=== PATIENT | female | born 1960 | race Caucasian/White ===

== ENCOUNTER 2016-03-13 16:35 | Emergency (ER) | payer MEDICAID ==
[2016-03-13] MEDS ORDERED: cefTRIAXone 1 GM in SODIUM CHLORIDE 0.9% MINIBAG 100 ML IV STA (18:07)
[2016-03-13] MEDS ORDERED: DEXAMETHASONE 10 MG/ML VIAL IVP STA (18:07)
[2016-03-13] MEDS ORDERED: SODIUM CHLORIDE 0.9% 1,000 ML IV ONE (18:07)
[2016-03-13] MEDS ORDERED: cefTRIAXone 1 GM VIAL ONE (18:26)
[2016-03-13] MEDS ORDERED: DEXAMETHASONE 10 MG/ML VIAL ONE (18:27)
[2016-03-13] MEDS ORDERED: IPRATROPIUM/ALBUTEROL 3 ML NEB INH STA (18:49)
[2016-03-13] MEDS ORDERED: IPRATROPIUM/ALBUTEROL 3 ML NEB INH ONE (19:02)
== END 2016-03-13 20:05 | disposition home or self-care (01) ==
DX: J18.9 Pneumonia, unspecified organism (principal); R09.02 Hypoxemia; E86.0 Dehydration; F17.200 Nicotine dependence, unspecified, uncomplicated
CPT/HCPCS: 36415; 71020; 80053; 83605; 83690; 85025; 87040; 87275; 87276; 94640; 96374; 96375; 99284; J7620

== ENCOUNTER 2016-04-09 21:15 | Inpatient (IN) | payer MEDICAID ==
[2016-04-09] MEDS ORDERED: METOPROLOL 5 MG/5 ML VIAL IVP ONE ×3 (21:48→23:02)
[2016-04-09] MEDS ORDERED: METOPROLOL 5 MG/5 ML VIAL IVP STA ×3 (21:49→22:48)
[2016-04-09] MEDS ORDERED: DIGOXIN 500 MCG/2 ML AMP IVP STA (22:45)
[2016-04-09] MEDS ORDERED: DIGOXIN 500 MCG/2 ML AMP IVP ONE (22:47)
[2016-04-09] MEDS ORDERED: METOPROLOL TARTRATE 50 MG TABLET PO STA (22:48)
[2016-04-09] MEDS ORDERED: METOPROLOL TARTRATE 50 MG TABLET ONE (23:02)
[2016-04-09] MEDS ORDERED: PROCHLORPERAZINE 10 MG/2 ML VIAL IVP PRN (23:42)
[2016-04-09] MEDS ORDERED: ONDANSETRON 4 MG/2 ML VIAL IVP PRN (23:42)
[2016-04-09] MEDS ORDERED: ACETAMINOPHEN 325 MG TABLET PO PRN (23:42)
[2016-04-09] MEDS ORDERED: HYDROcod/ACETAM 5/325 MG TABLET PO PRN (23:42)
[2016-04-09] MEDS ORDERED: ZOLPIDEM 5 MG TABLET PO PRN (23:42)
[2016-04-09] MEDS ORDERED: IOPAMIDOL-300 100 ML VIAL IVP ONE (23:47)
[2016-04-09] MEDS ORDERED: diltiaZEM INJ 5 MG/ML VIAL IVP STA (23:51)
[2016-04-10] MEDS: diltiaZEM 30 MG TABLET PO SCH ×4 (01:15→18:43)
[2016-04-10] MEDS: FUROSEMIDE 40 MG/4 ML VIAL IVP SCH ×3 (01:15→20:50)
[2016-04-10] MEDS: PANTOPRAZOLE 40 MG TABLET PO SCH (06:16)
[2016-04-10] MEDS: SODIUM CHLORIDE FLUSH 0.9% 10 ML SYRINGE IVP SCH ×3 (06:16→20:51)
[2016-04-10] MEDS: POLYETHYLENE GLYCOL 3350 17 GM PACKET PO SCH (08:21)
[2016-04-10] MEDS: ENOXAPARIN 40 MG/0.4 ML SYRINGE SUBQ SCH (08:21)
[2016-04-10] MEDS: HYDROcod/ACETAM 10 MG/325 MG TABLET PO PRN ×3 (08:21→19:50)
[2016-04-10] MEDS: ASPIRIN 325 MG TABLET PO SCH (08:21)
[2016-04-10] MEDS ORDERED: PERFLUTREN LIPID MICROSPHERES 1.65 MG/1.5 ML VIAL IVP ONE (08:25)
[2016-04-10] MEDS: POTASSIUM CHLORIDE 20 MEQ TABLET PO SCH (08:28)
[2016-04-10] MEDS: ALBUTEROL NEB 2.5 MG/3 ML INH PRN ×2 (08:30→20:35)
[2016-04-10] MEDS: diltiaZEM INJ 125 MG in DEXTROSE 5% 100 ML IV ONE ×2 (11:32→20:52)
[2016-04-11] MEDS: diltiaZEM 30 MG TABLET PO SCH ×4 (00:36→18:06)
[2016-04-11] MEDS: HYDROcod/ACETAM 10 MG/325 MG TABLET PO PRN ×4 (01:12→19:57)
[2016-04-11] MEDS: PANTOPRAZOLE 40 MG TABLET PO SCH (06:49)
[2016-04-11] MEDS: SODIUM CHLORIDE FLUSH 0.9% 10 ML SYRINGE IVP SCH ×3 (06:51→20:57)
[2016-04-11] MEDS: ASPIRIN 325 MG TABLET PO SCH (08:25)
[2016-04-11] MEDS: FUROSEMIDE 40 MG/4 ML VIAL IVP SCH ×2 (08:25→20:57)
[2016-04-11] MEDS: POLYETHYLENE GLYCOL 3350 17 GM PACKET PO SCH (08:25)
[2016-04-11] MEDS: POTASSIUM CHLORIDE 20 MEQ TABLET PO SCH (08:25)
[2016-04-11] MEDS: ENOXAPARIN 40 MG/0.4 ML SYRINGE SUBQ SCH (08:25)
[2016-04-11] MEDS: diltiaZEM INJ 125 MG in DEXTROSE 5% 100 ML IV ONE ×2 (09:30→18:01)
[2016-04-11] MEDS: ALBUTEROL NEB 2.5 MG/3 ML INH PRN (09:50)
[2016-04-11] MEDS: diltiaZEM INJ 125 MG in DEXTROSE 5% 100 ML IV SCH (18:03)
[2016-04-12] MEDS: diltiaZEM 30 MG TABLET PO SCH ×2 (00:06→07:04)
[2016-04-12] MEDS: HYDROcod/ACETAM 10 MG/325 MG TABLET PO PRN (00:06)
[2016-04-12] MEDS: diltiaZEM INJ 125 MG in DEXTROSE 5% 100 ML IV SCH ×3 (03:01→20:35)
[2016-04-12] MEDS: PANTOPRAZOLE 40 MG TABLET PO SCH (07:05)
[2016-04-12] MEDS: SODIUM CHLORIDE FLUSH 0.9% 10 ML SYRINGE IVP SCH ×3 (07:05→20:37)
[2016-04-12] MEDS: LORazepam 2 MG/ML SYRINGE IVP PRN ×3 (07:45→21:03)
[2016-04-12] MEDS: METOPROLOL 5 MG/5 ML VIAL IVP SCH ×3 (08:30→18:09)
[2016-04-12] MEDS: ENOXAPARIN 120 MG/0.8 ML SYRINGE SUBQ SCH ×2 (08:44→20:37)
[2016-04-12] MEDS: FUROSEMIDE 40 MG/4 ML VIAL IVP SCH ×2 (08:44→20:37)
[2016-04-12] MEDS: POLYETHYLENE GLYCOL 3350 17 GM PACKET PO SCH (08:45)
[2016-04-12] MEDS: CHLORHEXIDINE GLUCONATE 15 ML UDC PO SCH ×3 (09:15→20:37)
[2016-04-12] MEDS: ASPIRIN 325 MG TABLET PO SCH (09:16)
[2016-04-12] MEDS ORDERED: MIDAZOLAM 2 MG/2 ML VIAL ONE (09:57)
[2016-04-12] MEDS: SUCCINYLCHOLINE 200 MG/10 ML VIAL IVP ONE ×2 (10:00→14:49)
[2016-04-12] MEDS ORDERED: PROPOFOL 1000 MG/100 ML 100 ML IV ONE (10:14)
[2016-04-12] MEDS ORDERED: LIDOCAINE JELLY 2% 5 ML TUBE TOP ONE (11:22)
[2016-04-12] MEDS: PROPOFOL 1000 MG/100 ML 100 ML IV SCH ×4 (12:14→22:34)
[2016-04-12] MEDS: ALBUTEROL NEB 2.5 MG/3 ML INH PRN ×2 (17:07→19:59)
[2016-04-12] MEDS ORDERED: CALCIUM GLUCONATE 1,000 MG in SODIUM CHLORIDE 0.9% 50 ML IV ONE (19:51)
[2016-04-12] MEDS ORDERED: DEXTROSE 50% ABBOJECT 25 GM/50 ML SYRINGE IVP ONE (19:51)
[2016-04-12] MEDS ORDERED: INSULIN REGULAR HUMAN 100 UNIT/1 ML 10 ML MDV IVP ONE (19:51)
[2016-04-12] MEDS ORDERED: CHLORHEXIDINE GLUCONATE 15 ML UDC PO SCH (21:00)
[2016-04-12] MEDS: MORPHINE 2 MG/ML SYRINGE IVP PRN (21:02)
[2016-04-13] MEDS: METOPROLOL 5 MG/5 ML VIAL IVP SCH ×4 (00:50→18:26)
[2016-04-13] MEDS: ALBUTEROL NEB 2.5 MG/3 ML INH PRN ×2 (01:29→07:51)
[2016-04-13] MEDS: PROPOFOL 1000 MG/100 ML 100 ML IV SCH ×8 (02:14→22:20)
[2016-04-13] MEDS: SODIUM CHLORIDE FLUSH 0.9% 10 ML SYRINGE IVP SCH ×3 (06:05→22:09)
[2016-04-13] MEDS: PANTOPRAZOLE 40 MG VIAL IVP SCH (06:05)
[2016-04-13] MEDS ORDERED: PANTOPRAZOLE 40 MG VIAL IVP SCH (07:00)
[2016-04-13] MEDS ORDERED: SODIUM CHLORIDE INHALATION 3 ML NEB ONE (08:01)
[2016-04-13] MEDS: ASPIRIN 325 MG TABLET PO SCH (08:05)
[2016-04-13] MEDS ORDERED: VANCOMYCIN PER PHARMACY 1 GM in SODIUM CHLORIDE 0.9% 250 ML IV SCH (09:00)
[2016-04-13] MEDS: FUROSEMIDE 40 MG/4 ML VIAL IVP SCH ×2 (09:25→20:06)
[2016-04-13] MEDS: POLYETHYLENE GLYCOL 3350 17 GM PACKET PO SCH (09:31)
[2016-04-13] MEDS: CHLORHEXIDINE GLUCONATE 15 ML UDC PO SCH ×2 (09:41→20:06)
[2016-04-13] MEDS: VANCOMYCIN INJ 1 GM, VANCOMYCIN INJ 500 MG in SODIUM CHLORIDE 0.9% 500 ML IV SCH ×2 (10:16→22:09)
[2016-04-13] MEDS: ENOXAPARIN 40 MG/0.4 ML SYRINGE SUBQ SCH (10:46)
[2016-04-13] MEDS: IPRATROPIUM/ALBUTEROL 3 ML NEB INH SCH ×3 (10:56→18:10)
[2016-04-13] MEDS: MORPHINE 2 MG/ML SYRINGE IVP PRN ×2 (11:32→22:46)
[2016-04-13] MEDS: LORazepam 2 MG/ML SYRINGE IVP PRN (13:31)
[2016-04-13] MEDS: methylPREDNISolone SUCCINATE 125 MG/2 ML VIAL IVP SCH ×2 (13:34→22:09)
[2016-04-13] MEDS: SODIUM CHLORIDE FLUSH 0.9% 10 ML SYRINGE IVP PRN (22:46)
[2016-04-14] MEDS: METOPROLOL 5 MG/5 ML VIAL IVP SCH ×4 (00:33→18:00)
[2016-04-14] MEDS: PROPOFOL 1000 MG/100 ML 100 ML IV SCH ×9 (00:57→22:54)
[2016-04-14] MEDS: methylPREDNISolone SUCCINATE 125 MG/2 ML VIAL IVP SCH ×2 (05:58→13:55)
[2016-04-14] MEDS: SODIUM CHLORIDE FLUSH 0.9% 10 ML SYRINGE IVP SCH ×3 (05:58→22:55)
[2016-04-14] MEDS: PANTOPRAZOLE 40 MG VIAL IVP SCH (06:02)
[2016-04-14] MEDS: IPRATROPIUM/ALBUTEROL 3 ML NEB INH SCH (07:45)
[2016-04-14] MEDS ORDERED: IPRATROPIUM/ALBUTEROL 3 ML NEB INH PRN (11:37)
[2016-04-14] MEDS: CHLORHEXIDINE GLUCONATE 15 ML UDC PO SCH ×2 (12:08→21:06)
[2016-04-14] MEDS: FUROSEMIDE 40 MG/4 ML VIAL IVP SCH ×2 (12:08→21:06)
[2016-04-14] MEDS: VANCOMYCIN INJ 1 GM, VANCOMYCIN INJ 500 MG in SODIUM CHLORIDE 0.9% 500 ML IV SCH ×2 (12:09→22:59)
[2016-04-14] MEDS: ENOXAPARIN 40 MG/0.4 ML SYRINGE SUBQ SCH (12:09)
[2016-04-14] MEDS: MORPHINE 2 MG/ML SYRINGE IVP PRN (13:20)
[2016-04-14] MEDS ORDERED: fentaNYL 100 MCG/2 ML VIAL IVP PRN (14:54)
[2016-04-14] MEDS: diltiaZEM INJ 125 MG in DEXTROSE 5% 100 ML IV SCH (16:15)
[2016-04-15] MEDS: METOPROLOL 5 MG/5 ML VIAL IVP SCH ×5 (00:15→23:59)
[2016-04-15] MEDS: diltiaZEM INJ 125 MG in DEXTROSE 5% 100 ML IV SCH (00:31)
[2016-04-15] MEDS: PROPOFOL 1000 MG/100 ML 100 ML IV SCH ×8 (03:21→22:52)
[2016-04-15] MEDS: SODIUM CHLORIDE FLUSH 0.9% 10 ML SYRINGE IVP SCH ×4 (06:07→22:07)
[2016-04-15] MEDS: PANTOPRAZOLE 40 MG VIAL IVP SCH (07:28)
[2016-04-15] MEDS: VANCOMYCIN INJ 1 GM, VANCOMYCIN INJ 500 MG in SODIUM CHLORIDE 0.9% 500 ML IV SCH ×2 (09:51→22:05)
[2016-04-15] MEDS: FUROSEMIDE 40 MG/4 ML VIAL IVP SCH ×2 (10:14→22:04)
[2016-04-15] MEDS: ENOXAPARIN 40 MG/0.4 ML SYRINGE SUBQ SCH (10:14)
[2016-04-15] MEDS: CHLORHEXIDINE GLUCONATE 15 ML UDC PO SCH ×2 (10:14→22:05)
[2016-04-15] MEDS: IPRATROPIUM/ALBUTEROL 3 ML NEB INH SCH (14:34)
[2016-04-16] MEDS: PROPOFOL 1000 MG/100 ML 100 ML IV SCH ×7 (02:01→22:28)
[2016-04-16] MEDS: METOPROLOL 5 MG/5 ML VIAL IVP SCH ×3 (06:17→17:25)
[2016-04-16] MEDS: PANTOPRAZOLE 40 MG VIAL IVP SCH (06:17)
[2016-04-16] MEDS: SODIUM CHLORIDE FLUSH 0.9% 10 ML SYRINGE IVP SCH ×4 (06:20→23:17)
[2016-04-16] MEDS: ENOXAPARIN 40 MG/0.4 ML SYRINGE SUBQ SCH (08:06)
[2016-04-16] MEDS: CHLORHEXIDINE GLUCONATE 15 ML UDC PO SCH ×2 (08:06→21:04)
[2016-04-16] MEDS: FUROSEMIDE 40 MG/4 ML VIAL IVP SCH ×2 (08:06→21:04)
[2016-04-16] MEDS: VANCOMYCIN INJ 1 GM, VANCOMYCIN INJ 500 MG in SODIUM CHLORIDE 0.9% 500 ML IV SCH ×2 (10:56→22:26)
[2016-04-16] MEDS ORDERED: POTASSIUM CHLORIDE 20 MEQ/15 ML UDC PO ONE (12:00)
[2016-04-16] MEDS: SODIUM CHLORIDE FLUSH 0.9% 10 ML SYRINGE IVP PRN (21:04)
[2016-04-16] MEDS: diltiaZEM INJ 125 MG in DEXTROSE 5% 100 ML IV SCH (22:19)
[2016-04-16] MEDS ORDERED: A & D OINTMENT 5 GM PACKET TOP PRN (23:08)
[2016-04-17] MEDS: METOPROLOL 5 MG/5 ML VIAL IVP SCH ×4 (00:04→18:38)
[2016-04-17] MEDS: PROPOFOL 1000 MG/100 ML 100 ML IV SCH ×6 (04:56→22:30)
[2016-04-17] MEDS: SODIUM CHLORIDE FLUSH 0.9% 10 ML SYRINGE IVP SCH ×3 (05:41→21:05)
[2016-04-17] MEDS ORDERED: POTASSIUM CHLORIDE 20 MEQ/15 ML UDC PO SCH (06:22)
[2016-04-17] MEDS: PANTOPRAZOLE 40 MG VIAL IVP SCH (07:05)
[2016-04-17] MEDS: FUROSEMIDE 40 MG/4 ML VIAL IVP SCH ×2 (08:02→21:05)
[2016-04-17] MEDS: ENOXAPARIN 40 MG/0.4 ML SYRINGE SUBQ SCH (08:02)
[2016-04-17] MEDS: CHLORHEXIDINE GLUCONATE 15 ML UDC PO SCH ×2 (08:02→21:04)
[2016-04-17] MEDS: MORPHINE 2 MG/ML SYRINGE IVP PRN (10:23)
[2016-04-17] MEDS: VANCOMYCIN INJ 1 GM, VANCOMYCIN INJ 500 MG in SODIUM CHLORIDE 0.9% 500 ML IV SCH ×2 (10:37→21:05)
[2016-04-17] MEDS: diltiaZEM INJ 125 MG in DEXTROSE 5% 100 ML IV SCH (22:30)
[2016-04-18] MEDS: METOPROLOL 5 MG/5 ML VIAL IVP SCH ×5 (00:27→23:12)
[2016-04-18] MEDS: PROPOFOL 1000 MG/100 ML 100 ML IV SCH ×8 (01:01→21:44)
[2016-04-18] MEDS: MORPHINE 2 MG/ML SYRINGE IVP PRN ×4 (04:54→11:24)
[2016-04-18] MEDS ORDERED: POTASSIUM CHLORIDE 20 MEQ/15 ML UDC PO ONE (05:28)
[2016-04-18] MEDS: SODIUM CHLORIDE FLUSH 0.9% 10 ML SYRINGE IVP SCH ×3 (05:54→21:11)
[2016-04-18] MEDS: PANTOPRAZOLE 40 MG VIAL IVP SCH (06:09)
[2016-04-18] MEDS: CHLORHEXIDINE GLUCONATE 15 ML UDC PO SCH ×2 (08:36→21:11)
[2016-04-18] MEDS: ENOXAPARIN 40 MG/0.4 ML SYRINGE SUBQ SCH (08:43)
[2016-04-18] MEDS: FUROSEMIDE 40 MG/4 ML VIAL IVP SCH ×2 (08:43→21:11)
[2016-04-18] MEDS: LORazepam 2 MG/ML SYRINGE IVP PRN (10:37)
[2016-04-18] MEDS: VANCOMYCIN INJ 1 GM, VANCOMYCIN INJ 500 MG in SODIUM CHLORIDE 0.9% 500 ML IV SCH ×2 (10:47→21:11)
[2016-04-18] MEDS: SODIUM CHLORIDE FLUSH 0.9% 10 ML SYRINGE IVP PRN (15:04)
[2016-04-18] MEDS ORDERED: SODIUM CHLORIDE INHALATION 3 ML NEB ONE (23:07)
[2016-04-19] MEDS: PROPOFOL 1000 MG/100 ML 100 ML IV SCH ×7 (01:06→16:30)
[2016-04-19] MEDS ORDERED: POTASSIUM CHLORIDE 20 MEQ/15 ML UDC PO ONE (05:33)
[2016-04-19] MEDS: PANTOPRAZOLE 40 MG VIAL IVP SCH (06:02)
[2016-04-19] MEDS: SODIUM CHLORIDE FLUSH 0.9% 10 ML SYRINGE IVP SCH (06:02)
[2016-04-19] MEDS: METOPROLOL 5 MG/5 ML VIAL IVP SCH ×2 (06:08→12:41)
[2016-04-19] MEDS: FUROSEMIDE 40 MG/4 ML VIAL IVP SCH (08:35)
[2016-04-19] MEDS: CHLORHEXIDINE GLUCONATE 15 ML UDC PO SCH (08:35)
[2016-04-19] MEDS: ENOXAPARIN 40 MG/0.4 ML SYRINGE SUBQ SCH (08:35)
[2016-04-19] MEDS: VANCOMYCIN INJ 1 GM, VANCOMYCIN INJ 500 MG in SODIUM CHLORIDE 0.9% 500 ML IV SCH (10:17)
[2016-04-19] MEDS: MORPHINE 2 MG/ML SYRINGE IVP PRN (11:21)
[2016-04-19] MEDS ORDERED: SODIUM CHLORIDE INHALATION 3 ML NEB ONE (11:37)
== END 2016-04-19 17:41 | DRG 291 ==
PROC: 5A1955Z Respiratory Ventilation, Greater than 96 Consecutive Hours (ICD-10-PCS; principal; 2016-04-12)
PROC: 0BH17EZ Insertion of Endotracheal Airway into Trachea, Via Natural or Artificial Opening (ICD-10-PCS; 2016-04-12)
DX: I11.0 Hypertensive heart disease with heart failure (principal); J96.01 Acute respiratory failure with hypoxia; J18.9 Pneumonia, unspecified organism; J96.02 Acute respiratory failure with hypercapnia; I48.92 Unspecified atrial flutter; E66.2 Morbid (severe) obesity with alveolar hypoventilation; L03.116 Cellulitis of left lower limb; E87.2 Acidosis; Z68.42 Body mass index [BMI] 45.0-49.9, adult; I48.91 Unspecified atrial fibrillation; E66.01 Morbid (severe) obesity due to excess calories; G47.33 Obstructive sleep apnea (adult) (pediatric); F17.200 Nicotine dependence, unspecified, uncomplicated; E87.5 Hyperkalemia; T17.990A Other foreign object in respiratory tract, part unspecified in causing asphyxiation, initial encounter; Z88.5 Allergy status to narcotic agent; I50.23 Acute on chronic systolic (congestive) heart failure

== ENCOUNTER 2016-05-23 14:34 | Outpatient (CLI) | payer MEDICAID | END 2016-05-23 14:35 | disposition home or self-care (01) | DX: E86.9 Volume depletion, unspecified (principal); I48.1 Persistent atrial fibrillation ==

== ENCOUNTER 2016-08-12 15:25 | Outpatient (CLI) | payer MEDICAID ==
--- NOTE | 2016-08-13 13:56 | XRAY Report ---
TWO VIEW RIGHT SECOND TOE: 08/12/2016 CLINICAL INDICATION: Cellulitis. FINDINGS: AP, lateral, and oblique views of the right 2nd toe demonstrate soft tissue swelling. Ther e is no evidence of fracture. No osteolysis is seen to suggest osteomyelitis. No radiopaque foreign b thalia is seen. IMPRESSION: DISTAL SOFT TISSUE SWELLING, BUT NO EVIDENCE OF OSTEOMYELITIS OR RADIOPAQUE FOREIGN BODY . JOB #: [id number] EXT JOB #:[id number]
== END 2016-08-12 15:26 | disposition home or self-care (01) ==
LOC: DI.S 15:25
PROVIDERS: ATTEND Nurse Practitioner Family
DX: L03.031 Cellulitis of right toe (principal)
CPT/HCPCS: 73660

== ENCOUNTER 2017-10-01 11:42 | Outpatient (CLI) | payer MEDICAID | END 2017-10-01 11:43 | disposition critical access hospital (66) | LOC: EMS 11:42 | PROVIDERS: ATTEND Surgery | DX: R22.41 Localized swelling, mass and lump, right lower limb (principal) | CPT/HCPCS: A0425; A0429; A0999 ==

== ENCOUNTER 2017-10-01 12:11 | Emergency (ER) | payer MEDICAID ==
[2017-10-01] MEDS ORDERED: HYDROcod/ACETAM 5/325 MG TABLET PO STA (12:23)
--- NOTE | 2017-10-01 12:26 | ED Physician Documentation ---
History of Present Illness - Stated complaint Stated Complaint: LUMP ON CALF - Chief complaint Chief Complaint: General - History obtained from History obtained from: Patient, EMS - History of Present Illness Timing: Last night (57-year-old woman with history of morbid obesity and COPD, oxygen dependent at baseline, also atrial fibrillation on Xarelto presents with right leg pain since last night noted a palpable lump in the calf today that she has never had before. No history of DVT or PE. She has been compliant with her Xarelto. No increase in her chronic shortness of breath.) Review of Systems Constitutional: denies: Fever, Chills Cardiac: denies: Chest pain / pressure, Palpitations Respiratory: denies: Dyspnea, Cough GI: denies: Abdominal Pain PD PAST MEDICAL HISTORY - Past Medical History Cardiovascular: None Respiratory: Pneumonia Endocrine/Autoimmune: None GI: None COMMERCIAL FISHER: None : None HEENT: None Psych: Anxiety Musculoskeletal: Osteoarthritis Derm: None - Past Surgical History Past Surgical History: Yes General: Other /COMMERCIAL FISHER: section - Present Medications Home Medications: Ambulatory Orders Medication Instructions Recorded Confirmed Aclidinium [place] [Tudorza 1 puffs INH BID 04/10/16 04/10/16 Pressair] Albuterol Sulfate [Proair Hfa 2 puffs INH Q4H PRN 04/10/16 04/10/16 Inhaler] Ipratropium/Albuterol [Duoneb] 3 ml INH Q4H PRN 04/10/16 04/10/16 Tiotropium [place] [Spiriva 2 puffs INH BID 04/10/16 04/10/16 Respimat] - Allergies Allergies/Adverse Reactions: Allergies Allergy/AdvReac Type Severity Reaction Status Date / Time erythromycin base Allergy Severe Hives Verified 10/01/17 12:23 [Erythromycin Base] codeine [Codeine] Allergy Unknown unknown Verified 10/01/17 12:23 - Social History Does the pt smoke?: Yes Smoking Status: Current every day smoker Does the pt drink ETOH?: No Does the pt have substance abuse?: Yes - Immunizations Immunizations are current?: Yes - POLST Patient has POLST: No PD ED PE NORMAL - Vitals Vital signs reviewed: Yes - General General: Alert and oriented X 3, No acute distress - Extremities Extremities: Other (In the right proximal lateral calf there is a palpable tender lump, a little smaller than a golf ball. There is no tenderness in the popliteal fossa. She has pedal edema but it seems symmetric with good pedal pulses.) - Neuro Neuro: Alert and oriented X 3, Normal speech Results - Vitals Vitals: Vital Signs - 24 hr 10/01/17 12:20 Temperature 36.1 C L Heart Rate 94 Respiratory 16 Rate Blood Pressure 156/68 H O2 Saturation 97 Oxygen O2 Source Nasal cannula - Rads (name of study) RLE DVT sono Radiology: Prelim report reviewed (lump c/w hematoma, no dvt) PD MEDICAL DECISION MAKING - Sepsis Event Vital Signs: Vital Signs - 24 hr 10/01/17 12:20 Temperature 36.1 C L Heart Rate 94 Respiratory 16 Rate Blood Pressure 156/68 H O2 Saturation 97 Oxygen O2 Source Nasal cannula Departure - Departure Disposition: 01 Home, Self Care Clinical Impression: Hematoma of right lower extremity Qualifiers: Encounter type: initial encounter Qualified Code(s): S80.11XA - Contusion of right lower leg, initial encounter Condition: Good Record reviewed to determine appropriate education?: Yes Instructions: ED Hematoma Comments: Your blood pressure was elevated today on check into the emergency department. This does not mean that you have hypertension, it is a common phenomenon to come to the emergency department and have elevated blood pressure. I recommend that you see your primary care physician within the week to have it rechecked when you are feeling better.
--- NOTE | 2017-10-01 14:23 | Ultrasound Report ---
Procedure Date: 10/01/2017 Accession Number: [id number] / [id number] Procedure: US - Duplex Ext Veins Right CPT Code: FULL RESULT: EXAM: Duplex Ext Veins Right DATE: 10/01/2017 1:15 PM CLINICAL HISTORY: painful lump R prox medial calf COMPARISON: None. TECHNIQUE: Real-time sonographic vascular imaging was performed by the senior java programmer analyst through the lower extremities utilizing both color-flow and Doppler spectral analysis. Multiple community engagement representative static images were saved for review. FINDINGS: Right: Common Femoral Vein (CFV): Normal. [Profunda Femoral Vein (PFV): Normal. Superficial Femoral Vein (SFV) Prox: Normal. Superficial Femoral Vein (SFV) Mid: Normal. Superficial Femoral Vein (SFV) Dist: Normal. Popliteal Vein: Normal. Posterior Tibial Veins: Normal. Peroneal Veins: Normal. Note is made of a heterogeneous superficial collection measuring up to 1.4 cm without increased surrounding flow by color Doppler surrounding edema. IMPRESSION: No DVT. Soft tissue hematoma versus indeterminate collection. RADIA
[2017-10-01 14:43] VITALS: BP 162/92
== END 2017-10-01 14:54 | disposition home or self-care (01) ==
LOC: EDUNIT# → ED 12:11
DX: S80.11XA Contusion of right lower leg, initial encounter (principal); R03.0 Elevated blood-pressure reading, without diagnosis of hypertension
CPT/HCPCS: 93971; 99283; A9270

== ENCOUNTER 2018-02-08 12:12 | Outpatient (CLI) | payer MEDICAID ==
[2018-02-08 18:34] LABS: BASOPHILS % (AUTO) 0.2 %; EOSINOPHILS # (AUTO) 0.1 10^3/uL (0.0-0.7); EOSINOPHILS % (AUTO) 0.6 %; HGB - HEMOGLOBIN 12.4 g/dL (12.0-16.0); LYMPHOCYTES # (AUTO) 1.2 10^3/uL (1.5-3.5); LYMPHOCYTES % (AUTO) 13.3 %; MEAN CORPUSCULAR VOLUME 83.9 fL (81.0-99.0); MEAN PLATELET VOLUME 8.2 fL (7.9-10.8); MONOCYTES # (AUTO) 0.6 10^3/uL (0.0-1.0); MONOCYTES % (AUTO) 6.6 %; NEUTROPHILS # (AUTO) 7.4 10^3/uL (1.5-6.6); NEUTROPHILS % (AUTO) 79.3 %; PLT - PLATELET COUNT 391 10^3/uL (130-450); RED BLOOD COUNT 4.77 10^6/uL (4.20-5.40); RED CELL DISTRIBUTION WIDTH 14.9 % (12.0-15.0); WHITE BLOOD COUNT 9.4 x10^3/uL (4.8-10.8)
[2018-02-08 18:52] LABS: ALBUMIN 3.8 g/dL (3.2-5.5); ALBUMIN/GLOBULIN RATIO 1.1 (1.0-2.2); BILIRUBIN,TOTAL 0.5 mg/dL (0.2-1.0); CALCIUM 8.9 mg/dL (8.5-10.3); CREATININE 0.6 mg/dL (0.4-1.0); TOTAL PROTEIN 7.4 g/dL (6.7-8.2)
[2018-02-08 18:55] LABS: HB2 TOTAL 13.2 g/dL; HEMOGLOBIN A1C 0.48 g/dL; HEMOGLOBIN A1C % 5.5 % (4.6-6.2)
== END 2018-02-08 23:59 | disposition home or self-care (01) ==
LOC: LAB.S 12:12
PROVIDERS: ATTEND Nurse Practitioner Family
DX: I10 Essential (primary) hypertension (principal); R73.9 Hyperglycemia, unspecified
CPT/HCPCS: 36415; 80053; 83036; 84443; 85025

== ENCOUNTER 2020-04-16 09:10 | Outpatient (CLI) | payer MEDICARE, MEDICAID | END 2020-04-16 09:11 | disposition critical access hospital (66) | LOC: EMS 09:10 | PROVIDERS: ATTEND Emergency Medicine | DX: R06.02 Shortness of breath (principal) | CPT/HCPCS: A0425; A0429 ==

== ENCOUNTER 2020-04-16 09:41 | Inpatient (IN) | payer MEDICARE, MEDICAID ==
[2020-04-16] MEDS ORDERED: IPRATROPIUM/ALBUTEROL 3 ML NEB INH STA (09:59)
--- NOTE | 2020-04-16 10:10 | ED Physician Documentation ---
History of Present Illness - Stated complaint Stated Complaint: SOA - Chief complaint Chief Complaint: Resp - History obtained from History obtained from: Patient - Additonal information Additional information: 60-year-old woman with past medical history of COPD, A. fib on Eliquis, presents with progressive shortness of breath over the past couple days associated with subjective chills, cough productive of yellow sputum, and nasal congestion. Patient states that she had been feeling under the weather and then woke up this morning acutely short of breath refractory to rescue inhaler treatment therefore she called 911. Patient denies fevers objectively at home. Denies chest pain at present however she does have some chest tightness. Denies worsening leg swelling. Orthopnea at baseline. She does note that she ran out of Symbicort a month ago. 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: None : None HEENT: None Psych: Anxiety Musculoskeletal: Osteoarthritis Derm: None - Past Surgical History Past Surgical History: Yes General: Other /SNACK BAR COOK: section - Present Medications Home Medications: Ambulatory Orders Medication Instructions Recorded Confirmed Ipratropium/Albuterol [Duoneb] 3 ml INH Q4H PRN 04/10/16 04/16/20 Tiotropium [place] [Spiriva 2 puffs INH BID 04/10/16 04/16/20 Respimat] Aspirin [Aspirin EC] 81 mg PO DAILY 04/16/20 04/16/20 Budesonide/Formoterol Fumarate 1 - 2 puffs PO DAILY 04/16/20 04/16/20 [Symbicort 160-4.5 Mcg Inhaler] Furosemide [Lasix] 20 mg PO BID 04/16/20 04/16/20 Metoprolol Tartrate [Lopressor] 75 mg PO BID 04/16/20 04/16/20 Rivaroxaban [Xarelto] 20 mg PO DAILY 04/16/20 04/16/20 Tiotropium [place] [Spiriva] 1 - 2 puffs PO DAILY 04/16/20 04/16/20 - Allergies Allergies/Adverse Reactions: Allergies Allergy/AdvReac Type Severity Reaction Status Date / Time erythromycin base Allergy Severe Hives Verified 04/16/20 09:48 [Erythromycin Base] codeine [Codeine] Allergy Unknown unknown Verified 04/16/20 09:48 - Social History Does the pt smoke?: Yes Smoking Status: Current every day smoker Does the pt drink ETOH?: No Does the pt have substance abuse?: Yes - Immunizations Immunizations are current?: Yes - POLST Patient has POLST: No PD ED PE NORMAL - Vitals Vital signs reviewed: Yes - General General: Alert and oriented X 3, Other (obese appearing) - HEENT HEENT: Atraumatic, PERRL, EOMI, Other (dry mm) - Cardiac Cardiac: Other (tachycardic rate, irregular rhythm) - Respiratory Respiratory: Other (BL diffuse wheezing. dependent crackles. ) - Abdomen Abdomen: Non tender, Non distended - Female Female : Deferred - Rectal Rectal: Deferred - Back Back: No spinal TTP - Derm Derm: Normal color - Extremities Extremities: No deformity, Other (1+ BL pitting edema) - Neuro Neuro: Alert and oriented X 3 - Psych Psych: Normal mood, Normal affect Results - Vitals Vitals: Vital Signs - 24 hr 04/16/20 04/16/20 04/16/20 09:48 09:57 10:16 Temperature 36.7 C 36.7 C Heart Rate 119 H 122 H 116 H Respiratory 19 22 14 Rate Blood Pressure 138/96 H 138/96 H O2 Saturation 100 95 04/16/20 04/16/20 10:34 10:40 Temperature Heart Rate 122 H Respiratory 17 20 Rate Blood Pressure 129/63 O2 Saturation 95 97 Oxygen O2 Source Nasal cannula Oxygen Flow Rate 3 - EKG (time done) 0958 Rate: Rate (enter#) (112) Rhythm: Atrial fibrillation Ischemia: Normal ST segments - Labs Labs: Laboratory Tests 04/16/20 04/16/20 04/16/20 10:14 10:14 10:14 WBC 12.6 H RBC 4.28 Hgb 11.2 L Hct 39.3 MCV 91.8 MCH 26.2 L MCHC 28.5 L RDW 14.4 Plt Count 330 MPV 9.0 Neut # (Auto) 11.3 H Lymph # (Auto) 0.7 L Henry # (Auto) 0.5 Eos # (Auto) 0.0 Baso # (Auto) 0.0 Absolute Nucleated RBC 0.00 Nucleated RBC % 0.0 PT 20.7 H INR 1.9 H APTT 37.4 H VBG pH VBG pCO2 VBG pO2 VBG HCO3 VBG Total CO2 VBG O2 Saturation VBG Base Excess Sodium 141 Potassium 4.4 Chloride 90 L Carbon Dioxide 38 H Anion Gap 13.0 BUN 13 Creatinine 0.6 Estimated GFR (MDRD) 102 Glucose 139 H Calcium 9.1 Total Bilirubin 0.4 AST 14 ALT 15 Alkaline Phosphatase 54 Troponin I High Sens B-Natriuretic Peptide Total Protein 7.2 Albumin 3.5 Globulin 3.7 Albumin/Globulin Ratio 0.9 L Lipase 22 04/16/20 04/16/20 04/16/20 10:14 10:14 10:14 WBC RBC Hgb Hct MCV MCH MCHC RDW Plt Count MPV Neut # (Auto) Lymph # (Auto) Henry # (Auto) Eos # (Auto) Baso # (Auto) Absolute Nucleated RBC Nucleated RBC % PT INR APTT VBG pH 7.325 VBG pCO2 79.2 H VBG pO2 31.8 VBG HCO3 40.4 H VBG Total CO2 42.8 H VBG O2 Saturation 60.3 VBG Base Excess 11.3 H Sodium Potassium Chloride Carbon Dioxide Anion Gap BUN Creatinine Estimated GFR (MDRD) Glucose Calcium Total Bilirubin AST ALT Alkaline Phosphatase Troponin I High Sens 5.2 B-Natriuretic Peptide 123 H Total Protein Albumin Globulin Albumin/Globulin Ratio Lipase PD MEDICAL DECISION MAKING - ED course ED course: 10:30am - sepsis suspected given tachycardia, increased wbc count, CXR with likely pneumonia. 30cc/kg bolus withheld given patient has dependent crackles and BL LE edema. Will treat with gentle ivf resuscitation, antibiotics. patient with improvement in sob s/p neb treatment. repeat lung exam with improvmeent in wheezing. Departure - Departure Disposition: 66 [facility] DC/Xfer Clinical Impression: COPD exacerbation, Pneumonia Condition: Stable
[2020-04-16 10:23] LABS: BASOPHILS % (AUTO) 0.2 %; EOSINOPHILS % (AUTO) 0.2 %; HGB - HEMOGLOBIN 11.2 g/dL (12.0-16.0); LYMPHOCYTES # (AUTO) 0.7 10^3/uL (1.5-3.5); LYMPHOCYTES % (AUTO) 5.8 %; MEAN CORPUSCULAR HEMOGLOBIN 26.2 pg (27.0-31.0); MEAN CORPUSCULAR HGB CONC 28.5 g/dL (32.0-36.0); MEAN CORPUSCULAR VOLUME 91.8 fL (81.0-99.0); MONOCYTES # (AUTO) 0.5 10^3/uL (0.0-1.0); NEUTROPHILS # (AUTO) 11.3 10^3/uL (1.5-6.6); NEUTROPHILS % (AUTO) 89.3 %; PLT - PLATELET COUNT 330 10^3/uL (130-450); RED BLOOD COUNT 4.28 10^6/uL (4.20-5.40); RED CELL DISTRIBUTION WIDTH 14.4 % (12.0-15.0); WHITE BLOOD COUNT 12.6 x10^3/uL (4.8-10.8)
[2020-04-16 10:24] LABS: VBG PCO2 79.2 mmHg (41-51); VBG PH 7.325 (7.31-7.41); VBG PO2 31.8 mmHg (25-47)
[2020-04-16 10:25] LABS: VBG BASE EXCESS 11.3 mmol/L (-2 - +2); VBG TOTAL CO2 42.8 mmol/L (24-29)
[2020-04-16] MEDS ORDERED: levoFLOXacin 750 MG/150 ML 750 MG/150 ML BAG IV STA (10:25)
[2020-04-16 10:27] LABS: INR 1.9 (0.8-1.2); PT - PROTHROMBIN TIME 20.7 secs (9.9-12.6)
--- NOTE | 2020-04-16 10:29 | XRAY Report ---
PROCEDURE: Chest 1 View X-Ray INDICATIONS: Chest Pain TECHNIQUE: One view of the chest was acquired. COMPARISON: 04/19/2016. FINDINGS: Surgical changes and devices: None. Lungs and pleura: No pleural effusions or pneumothorax. Bilateral interstitial prominence. Mild ceph alization of pulmonary vasculature. Mediastinum: Mediastinal contours appear normal. Heart is enlarged Bones and chest wall: No suspicious bony lesions. Overlying soft tissues appear unremarkable. IMPRESSION: 1. Cardiomegaly. 2. Interstitial prominence which could represent edema or atypical pneumonia. Reviewed by: Soumya David MD, PhD on 04/16/2020 10:27 AM [facility] Approved by: Soumya David MD, PhD on 04/16/2020 10:27 AM [facility] Station ID: [id number]
[2020-04-16 10:34] LABS: PARTIAL THROMBOPLASTIN TIME 37.4 secs (24.9-33.3)
[2020-04-16 10:35] LABS: ALBUMIN 3.5 g/dL (3.2-5.5); ALBUMIN/GLOBULIN RATIO 0.9 (1.0-2.2); BILIRUBIN,TOTAL 0.4 mg/dL (0.2-1.0); CALCIUM 9.1 mg/dL (8.5-10.3); CREATININE 0.6 mg/dL (0.4-1.0); TOTAL PROTEIN 7.2 g/dL (6.7-8.2)
[2020-04-16] MEDS ORDERED: LACTATED RINGERS 2,000 ML IV STA (10:42)
[2020-04-16] MEDS ORDERED: methylPREDNISolone SUCCINATE 125 MG/2 ML VIAL IVP STA (10:46)
[2020-04-16] MEDS ORDERED: ACETAMINOPHEN 325 MG TABLET PO PRN (10:50)
--- NOTE | 2020-04-16 10:58 | HISTORY & PHYSICAL EXAMINATION ---
Chief Complaint - Chief Complaint Chief Complaint: dyspnea History of Present Illness - Admitted From Admitted From:: [facility] ED - History Obtained From Records Reviewed: yes History obtained from: patient - History of Present Illness HPI Comment/Other: Patient is a 60-year-old morbidly obese female with medical history significant for atrial fibrillation on anticoagulant, borderline hypertension, CHF, obstructive sleep apnea and obesity hypoventilation syndrome and tobacco abuse who presented to the ED with complaint of dyspnea. She describes that she woke up this morning and the first thing she is did was reached for her inhaler. Last night she felt like she was having a bit of a cold. She denied fever or chills. She has been coughing. The sputum color ranges from clear to yellowish-green. She denied chest pain, abdominal pain, nausea, vomiting, fever or chills. She has a walker to get around at home but mainly glides using the garcia. At rest she is on 3 L of oxygen at home and 5 L with ambulation. In the ED she had a WBC of 12.6. CXR raised concern for atypical pneumonia. As a result she was presented for admission. History - Past Medical History Cardiovascular: reports: None, Congestive heart failure, Hypertension, Atrial fibrillation Respiratory: reports: COPD, Pneumonia, Sleep apnea Endocrine/Autoimmune: reports: Other (Obesity Hypoventillation syndrom) GI: reports: None SAT TUTOR: reports: None : reports: None HEENT: reports: None Psych: reports: Anxiety Musculoskeletal: reports: Osteoarthritis Derm: reports: None MRSA Hx?: No - Past Surgical History General: reports: Other /SAT TUTOR: reports: section - Family & Social History Family History: Mother: Cancer (throat), Diabetes, Type 2, Hypertension, Father: Diabetes, Type 2, Hypertension Living arrangement: At home Social History Notes: She smokes 1 pack a day. She previously smoked 2 to 3 packs a day and had been smoking for 40 years. She denied alcohol or recreational drug use. - POLST Patient has POLST: No POLST Status: Full Code Meds/Allgy - Home Medications Home Medications: Ambulatory Orders Medication Instructions Recorded Confirmed Ipratropium/Albuterol [Duoneb] 3 ml INH Q4H PRN 04/10/16 04/16/20 Tiotropium [place] [Spiriva 2 puffs INH BID 04/10/16 04/16/20 Respimat] Aspirin [Aspirin EC] 81 mg PO DAILY 04/16/20 04/16/20 Budesonide/Formoterol Fumarate 1 - 2 puffs PO DAILY 04/16/20 04/16/20 [Symbicort 160-4.5 Mcg Inhaler] Furosemide [Lasix] 20 mg PO BID 04/16/20 04/16/20 Metoprolol Tartrate [Lopressor] 75 mg PO BID 04/16/20 04/16/20 Rivaroxaban [Xarelto] 20 mg PO DAILY 04/16/20 04/16/20 Tiotropium [place] [Spiriva] 1 - 2 puffs PO DAILY 04/16/20 04/16/20 - Allergies Allergies/Adverse Reactions: Allergies Allergy/AdvReac Type Severity Reaction Status Date / Time erythromycin base Allergy Severe Hives Verified 04/16/20 09:48 [Erythromycin Base] codeine [Codeine] Allergy Unknown unknown Verified 04/16/20 09:48 Review of Systems - Constitutional Constitutional: denies: Fatigue, Fever, Chills - Eyes Eyes: denies: Pain, Irritation - Cardiovascular Cariovascular: reports: Irregular heart rate, Exertional dyspnea. denies: Chest pain, Edema, Lightheadedness, Syncope - Respiratory Respiratory: reports: Cough, Sputum production, Wheezing, SOB at rest, SOB with exertion - Gastrointestinal Gastrointestinal: denies: Abdominal pain, Abdominal distention, Constipation, Diarrhea, Nausea, Vomiting, Coffee grounds emesis, Reflux/heartburn, Bloating, Poor appetite - Genitourinary Genitourinary: denies: Dysuria, Frequency, Urgency, Hematuria, Incontinence, Flank pain - Musculoskeletal Musculoskeletal: reports: Back pain - Integumentary Integumentary: denies: Rash, Pruritis, Lesions - Neurological Neurological: denies: General weakness, Focal weakness, Headache, Dizziness - Psychiatric Psychiatric: denies: Depression, Anxiety - Endocrine Endocrine: denies: Polyuria, Polydypsia - Hematologic/Lymphatic Hematologic/Lymphatic: denies: Anemia, Bruising Prior Level of Functionality: She is independent of activities of daily living Exam - Vital Signs Vital Signs: Vital Signs x48h Temp Pulse Resp BP Pulse Ox 04/16/20 10:40 122 H 20 129/63 97 04/16/20 10:34 17 95 04/16/20 10:16 116 H 14 04/16/20 09:57 36.7 C 122 H 22 138/96 H 95 04/16/20 09:48 36.7 C 119 H 19 138/96 H 100 - Physical Exam General Appearance: positive: Alert, Moderate distress Eyes Bilateral: positive: PERRL, EOMI ENT: positive: ENT inspection nml, No signs of dehydration Neck: positive: No JVD, Trachea midline Respiratory: positive: No respiratory distress, Wheezes. negative: Rales, Rhonchi Cardiovascular: positive: No murmur, Irregularly irregular Abdomen: positive: Non-tender, No organomegaly, Nml bowel sounds, No distention, Other (obese abdomen) Skin: positive: Color nml, No rash, Warm, Dry Extremities: positive: Non-tender, Full ROM, Nml appearance, No pedal edema, Other (left big toe appears inflammed (?ingrown toe nail)) Neurologic/Psychiatric: positive: Oriented x3, Motor nml, Mood/affect nml Conclusion/Plan - Problem List (1) COPD exacerbation Conclusion/Plan: Mild Solumedrol 80 mg IV 3 times daily ordered. DuoNeb ordered q3hrs as needed. Budesonide and formoterol bid ordered. Patient on supplemental oxygen via nasal cannula. (2) Pneumonia Conclusion/Plan: Likely atypical. Levaquin 500 mg every 24 hours started (3) A-fib Conclusion/Plan: On metoprolol tartrate 75 mg p.o. twice daily. On Xarelto 20 mg p.o. daily. We will resume medications once verified. (4) HTN (hypertension) Conclusion/Plan: On metoprolol titrate and Lasix. Will continue. Qualifiers: Hypertension type: essential hypertension Qualified Code(s): I10 - Essential (primary) hypertension (6) Congestive heart failure Conclusion/Plan: Not in exacerbation. On Lasix 20 mg p.o. twice daily and metoprolol tartrate 75 mg p.o. twice daily. We will continue. - Lab Results Fish Bones: 04/16/20 10:14 04/16/20 10:14 Core Measures - Anticipated LOS I expect patient to be DC'd or transferred within 96 hours.: Yes - DVT/VTE - Prophylaxis VTE/DVT Device ordered at admit?: Yes VTE/DVT Prophylaxis med ordered at admit?: Yes
[2020-04-16 11:26] LABS: C. PNEUMONIAE- RESP PCR PANEL NOT DETECTED
--- NOTE | 2020-04-16 11:31 | XRAY Report ---
PROCEDURE: Toe(s) LT INDICATIONS: first toe injury (remote) with discoloration TECHNIQUE: 3 views of the left toe(s) acquired. COMPARISON: None. FINDINGS: Bones: No fractures or dislocations. No suspicious bony lesions. Scattered subchondral sclerosis a nd spurring. Mild first MTP joint degeneration. Soft tissues: No suspicious soft tissue densities. IMPRESSION: No acute bony abnormality. Degenerative changes as above If the patient's pain or other symptoms persist, consider further evaluation with MRI. Reviewed by: Vernon Prieto MD on 04/16/2020 11:30 AM PST Approved by: Vernon Prieto MD on 04/16/2020 11:30 AM PST Station ID: [id number]
[2020-04-16] MEDS: IPRATROPIUM/ALBUTEROL 3 ML NEB INH PRN ×2 (14:36→19:28)
[2020-04-16] MEDS ORDERED: oxyCODONE 5 MG TABLET PO PRN (15:51)
[2020-04-16] MEDS: SODIUM CHLORIDE FLUSH 0.9% 10 ML SYRINGE IVP SCH (17:01)
[2020-04-16] MEDS: methylPREDNISolone SUCCINATE 125 MG/2 ML VIAL IVP SCH ×2 (17:01→22:07)
--- NOTE | 2020-04-16 18:48 | PHARMACY PROGRESS NOTE ---
- Best Possible Medication History Admit Date and Time: 04/16/20 1050 Processed by: Pharmacy Medication History completed: Yes Secondary Source(s): Physician records, Pharmacy records, Insurance records As the person ultimately responsible for medication therapy, providers are able to order a medication from an existing home medication list in [facility] via the "Reconcile Routine" prior to Confirmation of that medication by sales support assistant. Such practice is discouraged except when the physician, in their clinical judgment, deems that a medical need exists for a medication without regard to previous use.
[2020-04-16] MEDS: RIVAROXABAN 10 MG TABLET PO SCH (18:51)
[2020-04-16] MEDS: FUROSEMIDE 20 MG TABLET PO SCH (18:51)
[2020-04-16] MEDS: FORMOTEROL FUMARATE NEB 20 MCG/2 ML INH SCH (19:28)
[2020-04-16] MEDS: BUDESONIDE 0.5 MG/2 ML NEB INH SCH (19:28)
[2020-04-16] MEDS: METOPROLOL TARTRATE 50 MG TABLET PO SCH (22:07)
[2020-04-17] MEDS: HYDROcod/ACETAM 7.5 MG/325 MG TABLET PO PRN ×4 (00:48→22:59)
[2020-04-17] MEDS: SODIUM CHLORIDE FLUSH 0.9% 10 ML SYRINGE IVP SCH ×3 (00:49→17:38)
[2020-04-17] MEDS: PANTOPRAZOLE 40 MG TABLET PO SCH (06:02)
[2020-04-17] MEDS: FUROSEMIDE 20 MG TABLET PO SCH ×2 (06:02→13:49)
[2020-04-17] MEDS: methylPREDNISolone SUCCINATE 125 MG/2 ML VIAL IVP SCH ×3 (06:03→21:32)
[2020-04-17 07:33] LABS: BASOPHILS % (AUTO) 0.1 %; HGB - HEMOGLOBIN 10.7 g/dL (12.0-16.0); LYMPHOCYTES # (AUTO) 0.5 10^3/uL (1.5-3.5); LYMPHOCYTES % (AUTO) 4.1 %; MEAN CORPUSCULAR HEMOGLOBIN 26.2 pg (27.0-31.0); MEAN CORPUSCULAR HGB CONC 28.9 g/dL (32.0-36.0); MEAN CORPUSCULAR VOLUME 90.7 fL (81.0-99.0); MEAN PLATELET VOLUME 9.4 fL (7.9-10.8); MONOCYTES # (AUTO) 0.2 10^3/uL (0.0-1.0); MONOCYTES % (AUTO) 1.5 %; NEUTROPHILS # (AUTO) 10.2 10^3/uL (1.5-6.6); NEUTROPHILS % (AUTO) 93.7 %; PLT - PLATELET COUNT 363 10^3/uL (130-450); RED BLOOD COUNT 4.08 10^6/uL (4.20-5.40); RED CELL DISTRIBUTION WIDTH 14.3 % (12.0-15.0); WHITE BLOOD COUNT 10.9 x10^3/uL (4.8-10.8)
[2020-04-17 07:42] LABS: CALCIUM 9.1 mg/dL (8.5-10.3); CREATININE 0.6 mg/dL (0.4-1.0)
[2020-04-17] MEDS: IPRATROPIUM/ALBUTEROL 3 ML NEB INH PRN ×2 (08:00→14:58)
[2020-04-17] MEDS: FORMOTEROL FUMARATE NEB 20 MCG/2 ML INH SCH ×2 (08:00→20:08)
[2020-04-17] MEDS: BUDESONIDE 0.5 MG/2 ML NEB INH SCH ×2 (08:00→20:08)
[2020-04-17] MEDS: METOPROLOL TARTRATE 50 MG TABLET PO SCH ×2 (09:20→21:32)
[2020-04-17] MEDS: levoFLOXacin 750 MG/150 ML 750 MG/150 ML BAG IV SCH (09:20)
[2020-04-17] MEDS: SODIUM CHLORIDE FLUSH 0.9% 10 ML SYRINGE IVP PRN ×3 (09:46→13:50)
[2020-04-17 11:24] LABS: HEMOGLOBIN A1c% 5.6 % (4.27-6.07)
--- NOTE | 2020-04-17 11:32 | PROVIDER PROGRESS NOTE ---
Subjective - Prog Note Date Prog Note Date: 04/17/20 - Subjective Pt reports feeling: Improved Subjective: Patient complaint left big toe pain. There is mild erythema in the left big toe but the patient can move Left big toe. X-ray of left big toe show no acute bony abnormality, but Degenerative changes, And uric acid test is in the normal range. Patient denies fever, chill, chest pain Current Medications - Current Medications Current Medications: Active Medications Acetaminophen (Acetaminophen 325 Mg Tablet) 650 mg PO Q4HR PRN PRN Reason: Pain 1 to 4 Hydrocodone Bitart/Acetaminophen (Hydrocod/Acetam 7.5 Mg/325 Mg Tablet) 1 tab PO Q6HR PRN PRN Reason: PAIN Last Admin: 04/17/20 09:19 Dose: 1 tab Documented by: Albuterol/Ipratropium (Ipratropium/Albuterol 3 Ml Neb) 3 ml INH Q4HR PRN PRN Reason: Wheezing Last Admin: 04/17/20 08:00 Dose: 3 ml Documented by: Budesonide (Budesonide 0.5 Mg/2 Ml Neb) 0.5 mg INH RTBID TESS Last Admin: 04/17/20 08:00 Dose: 0.5 mg Documented by: Formoterol Fumarate (Formoterol Fumarate Neb 20 Mcg/2 Ml) 20 mcg INH RTBID TESS Last Admin: 04/17/20 08:00 Dose: 20 mcg Documented by: Furosemide (Furosemide 20 Mg Tablet) 20 mg PO BIDDIURETIC [facility] Last Admin: 04/17/20 06:02 Dose: 20 mg Documented by: Levofloxacin (Levaquin 750 Mg/150 Ml) 750 mg in 150 mls @ 100 mls/hr IV DAILY [facility] Last Titration: 04/17/20 10:55 Dose: Infused Documented by: Methylprednisolone Sodium Succinate (Methylprednisolone Succinate 125 Mg/2 Ml Vial) 60 mg IVP TID TESS Metoprolol Tartrate (Metoprolol Tartrate 50 Mg Tablet) 75 mg PO BID [facility] Last Admin: 04/17/20 09:20 Dose: 75 mg Documented by: Oxycodone HCl (Oxycodone 5 Mg Tablet) 5 mg PO Q4HR PRN PRN Reason: PAIN Pantoprazole Sodium (Pantoprazole 40 Mg Tablet) 40 mg PO QDAC [facility] Last Admin: 04/17/20 06:02 Dose: 40 mg Documented by: Rivaroxaban (Rivaroxaban 10 Mg Tablet) 20 mg PO 1700 [facility] Last Admin: 04/16/20 18:51 Dose: 20 mg Documented by: Sodium Chloride (Sodium Chloride Flush 0.9% 10 Ml Syringe) 10 ml IVP PRN PRN PRN Reason: NEEDED PER PROVIDER ORDERS Last Admin: 04/17/20 11:42 Dose: 10 ml Documented by: Sodium Chloride (Sodium Chloride Flush 0.9% 10 Ml Syringe) 10 ml IVP 0100,0900,1700 [facility] Last Admin: 04/17/20 09:45 Dose: 10 ml Documented by: Ipratropium/Albuterol [Duoneb] 3 ml INH Q4H PRN 04/10/16 Aspirin [Aspirin EC] 81 mg PO DAILY 04/16/20 Budesonide/Formoterol Fumarate [Symbicort 160-4.5 Mcg Inhaler] 2 puffs PO BID 04/16/20 Furosemide [Lasix] 20 mg PO BID 04/16/20 Metoprolol Tartrate [Lopressor] 75 mg PO BID 04/16/20 Rivaroxaban [Xarelto] 20 mg PO DAILY 04/16/20 Tiotropium [place] [Spiriva] 1 puffs PO DAILY 04/16/20 Objective - Vital Signs/Intake & Output Vital Signs: Vital Signs x48h Temp Pulse Pulse Pulse Pulse Pulse Resp 04/17/20 10:38 104 H 116 H 119 H 04/17/20 09:20 04/17/20 09:18 105 H 04/17/20 08:00 36.8 C 96 101 H 18 04/17/20 05:00 36.9 C 80 20 BP BP BP BP BP Pulse Ox Pulse Ox 04/17/20 10:38 139/77 H 147/62 H 140/63 H 93 04/17/20 09:20 140/63 H 04/17/20 09:18 140/63 H 04/17/20 08:00 131/62 H 96 04/17/20 05:00 131/73 H 97 Pulse Ox 04/17/20 10:38 91 L 04/17/20 09:20 04/17/20 09:18 04/17/20 08:00 04/17/20 05:00 Intake & Output: Intake & Output 04/14/20 04/15/20 04/16/2016/21 23:59 23:59 23:59 23:59 Intake Total 2780.000 100 Output Total 600 50 Balance 2180.000 50 - Objective General Appearance: positive: No acute distress, Alert. negative: Lethargic Eyes Bilateral: positive: Normal inspection, PERRL, No lid inflammation ENT: positive: ENT inspection nml, No signs of dehydration. negative: Dry mucous membranes Neck: positive: Nml inspection, Trachea midline. negative: Thyromegaly, Tracheal deviation Respiratory: positive: Chest non-tender, No respiratory distress. negative: Rales Cardiovascular: positive: Regular rate & rhythm, No murmur. negative: Tachycardia, Bradycardia, Systolic murmur, Diastolic murmur Peripheral Pulses: 2+ Radial (R), 2+ Radial (L) Abdomen: positive: Non-tender, Nml bowel sounds. negative: Tenderness, Guarding Back: positive: Nml inspection Skin: positive: Warm, Dry. negative: Cyanosis, Diaphoresis, Pallor Extremities: positive: Non-tender, Full ROM, Other (left big toe with mild eryt snehal and mild swelling.). negative: Calf tenderness Neurologic/Psychiatric: positive: Oriented x3, Sensation nml, Mood/affect nml. negative: Weakness, Sensory loss, Facial droop, Slurred/abnml speech, Depressed mood/affect - Lab Results Fish Bones: 04/17/20 07:25 04/17/20 07:25 Other Labs: Lab Results x24hrs 04/17/20 04/17/20 04/17/20 Range/Units 07:25 07:25 07:25 WBC (4.8-10.8) x10^3/uL RBC (4.20-5.40) 10^6/uL Hgb (12.0-16.0) g/dL Hct (37.0-47.0) % MCV (81.0-99.0) fL MCH (27.0-31.0) pg MCHC (32.0-36.0) g/dL RDW (12.0-15.0) % Plt Count (130-450) 10^3/uL MPV (7.9-10.8) fL Neut # (Auto) (1.5-6.6) 10^3/uL Lymph # (Auto) (1.5-3.5) 10^3/uL [place] # (Auto) (0.0-1.0) 10^3/uL Eos # (Auto) (0.0-0.7) 10^3/uL Baso # (Auto) (0.0-0.1) 10^3/uL Absolute Nucleated RBC x10^3/uL Nucleated RBC % /100WBC Sodium 141 (135-145) mmol/L Potassium 4.5 (3.5-5.0) mmol/L Chloride 91 L (101-111) mmol/L Carbon Dioxide 38 H (21-32) mmol/L Anion Gap 12.0 (6-13) BUN 11 (6-20) mg/dL Creatinine 0.6 (0.4-1.0) mg/dL Estimated GFR (MDRD) 102 (>89) Glucose 166 H (70-100) mg/dL Estimat Average Glucose 114 H (70-100) mg/dL Hemoglobin A1c % 5.6 (4.27-6.07) % Uric Acid 7.0 (2.6-7.2) mg/dL Calcium 9.1 (8.5-10.3) mg/dL 04/17/20 Range/Units 07:25 WBC 10.9 H (4.8-10.8) x10^3/uL RBC 4.08 L (4.20-5.40) 10^6/uL Hgb 10.7 L (12.0-16.0) g/dL Hct 37.0 (37.0-47.0) % MCV 90.7 (81.0-99.0) fL MCH 26.2 L (27.0-31.0) pg MCHC 28.9 L (32.0-36.0) g/dL RDW 14.3 (12.0-15.0) % Plt Count 363 (130-450) 10^3/uL MPV 9.4 (7.9-10.8) fL Neut # (Auto) 10.2 H (1.5-6.6) 10^3/uL Lymph # (Auto) 0.5 L (1.5-3.5) 10^3/uL [place] # (Auto) 0.2 (0.0-1.0) 10^3/uL Eos # (Auto) 0.0 (0.0-0.7) 10^3/uL Baso # (Auto) 0.0 (0.0-0.1) 10^3/uL Absolute Nucleated RBC 0.00 x10^3/uL Nucleated RBC % 0.0 /100WBC Sodium (135-145) mmol/L Potassium (3.5-5.0) mmol/L Chloride (101-111) mmol/L Carbon Dioxide (21-32) mmol/L Anion Gap (6-13) BUN (6-20) mg/dL Creatinine (0.4-1.0) mg/dL Estimated GFR (MDRD) (>89) Glucose (70-100) mg/dL Estimat Average Glucose (70-100) mg/dL Hemoglobin A1c % (4.27-6.07) % Uric Acid (2.6-7.2) mg/dL Calcium (8.5-10.3) mg/dL ABX Reporting Has patient been on IV antibiotics over the past 48 hours?: Yes Sepsis Event Note (H) - Evaluation Current Stage of Sepsis: Ruled out Assessment/Plan - Problem List (1) COPD exacerbation Impression: Patient has cigarette smoking one pack per day, Patient also is home oxygen dependent. Patient present shortness of breathing in the admission. Patient report she feel better on today. We will reduce Solu-Medrol to 60 mg 3 times daily, Continue DuoNeb, Pulmicort and formoterol, Continue supplemental oxygen. (2) Pneumonia X-ray show Atopica pneumonia, patient report she had cough With yellowish sputum , continue Levaquin (3) A-fib stable, continue metoprolol tartrate 75 mg p.o. twice daily and Xarelto 20 mg p.o. daily. (4) HTN (hypertension) stable, continue metoprolol titrate and Lasix. Will continue. (6) Congestive heart failure Not in exacerbation pt is On Lasix 20 mg p.o. twice daily and metoprolol tartrate 75 mg p.o. twice daily. (7)Mortality obesity Patient BMI 66, Advised patient loss of the weight, We will continue physical therapist/Occupation therapist (8)left big toe pain X-ray will show no acute bony fracture or dislocation, Suggestion of dege nerative process, Big toe has mild erythema and very mild edema, .Not indicated to have infection. Patient also has A1c 5.6. Uric acid is in the normal range. We will let the patient have pain control, Work with physical therapist
[2020-04-17] MEDS ORDERED: oxyCODONE 5 MG TABLET PO PRN (11:42)
[2020-04-17] MEDS ORDERED: GI COCKTAIL 120 ML BOTTLE PO PRN (13:08)
[2020-04-17] MEDS ORDERED: GI COCKTAIL 120 ML BOTTLE PO SCH (14:00)
[2020-04-17] MEDS: RIVAROXABAN 10 MG TABLET PO SCH (17:38)
[2020-04-17] MEDS: SIMETHICONE CHEW 80 MG TABLET PO SCH ×2 (17:38→21:32)
[2020-04-18] MEDS: SODIUM CHLORIDE FLUSH 0.9% 10 ML SYRINGE IVP SCH ×3 (00:37→17:21)
[2020-04-18 05:38] LABS: BASOPHILS % (AUTO) 0.2 %; HGB - HEMOGLOBIN 10.1 g/dL (12.0-16.0); LYMPHOCYTES # (AUTO) 0.6 10^3/uL (1.5-3.5); LYMPHOCYTES % (AUTO) 4.8 %; MEAN CORPUSCULAR HEMOGLOBIN 25.8 pg (27.0-31.0); MEAN CORPUSCULAR HGB CONC 28.5 g/dL (32.0-36.0); MEAN CORPUSCULAR VOLUME 90.6 fL (81.0-99.0); MEAN PLATELET VOLUME 9.8 fL (7.9-10.8); MONOCYTES # (AUTO) 0.3 10^3/uL (0.0-1.0); MONOCYTES % (AUTO) 2.4 %; NEUTROPHILS # (AUTO) 11.3 10^3/uL (1.5-6.6); NEUTROPHILS % (AUTO) 92.1 %; PLT - PLATELET COUNT 352 10^3/uL (130-450); RED BLOOD COUNT 3.92 10^6/uL (4.20-5.40); RED CELL DISTRIBUTION WIDTH 14.7 % (12.0-15.0); WHITE BLOOD COUNT 12.2 x10^3/uL (4.8-10.8)
[2020-04-18] MEDS: methylPREDNISolone SUCCINATE 125 MG/2 ML VIAL IVP SCH (05:57)
[2020-04-18] MEDS: PANTOPRAZOLE 40 MG TABLET PO SCH (05:58)
[2020-04-18] MEDS: FUROSEMIDE 20 MG TABLET PO SCH ×2 (05:58→14:35)
[2020-04-18 06:17] LABS: CALCIUM 8.9 mg/dL (8.5-10.3); CREATININE 0.7 mg/dL (0.4-1.0)
[2020-04-18] MEDS: FORMOTEROL FUMARATE NEB 20 MCG/2 ML INH SCH ×2 (08:30→19:30)
[2020-04-18] MEDS: IPRATROPIUM/ALBUTEROL 3 ML NEB INH PRN ×2 (08:30→19:30)
[2020-04-18] MEDS: BUDESONIDE 0.5 MG/2 ML NEB INH SCH ×2 (08:30→19:30)
[2020-04-18] MEDS: METOPROLOL TARTRATE 50 MG TABLET PO SCH ×2 (09:14→21:02)
[2020-04-18] MEDS: HYDROcod/ACETAM 7.5 MG/325 MG TABLET PO PRN ×3 (09:15→22:28)
[2020-04-18] MEDS: SIMETHICONE CHEW 80 MG TABLET PO SCH ×4 (09:16→21:02)
[2020-04-18] MEDS: levoFLOXacin 750 MG/150 ML 750 MG/150 ML BAG IV SCH (09:17)
[2020-04-18] MEDS: LORazepam 0.5 MG TABLET PO PRN ×2 (12:35→18:14)
--- NOTE | 2020-04-18 14:11 | PROVIDER PROGRESS NOTE ---
Subjective - Prog Note Date Prog Note Date: 04/18/20 - Subjective Pt reports feeling: Worse Subjective: Patient report he still feel very shortness of breathing and extremely weakness on today, and anxiety. she denies fever, chill. we will check troponin, then EKG as needed. pt has hx of afib. Current Medications - Current Medications Current Medications: Active Medications Acetaminophen (Acetaminophen 325 Mg Tablet) 650 mg PO Q4HR PRN PRN Reason: Pain 1 to 4 Hydrocodone Bitart/Acetaminophen (Hydrocod/Acetam 7.5 Mg/325 Mg Tablet) 1 tab PO Q6HR PRN PRN Reason: PAIN Last Admin: 04/18/20 09:15 Dose: 1 tab Documented by: Albuterol/Ipratropium (Ipratropium/Albuterol 3 Ml Neb) 3 ml INH Q4HR PRN PRN Reason: Wheezing Last Admin: 04/18/20 08:30 Dose: 3 ml Documented by: Budesonide (Budesonide 0.5 Mg/2 Ml Neb) 0.5 mg INH RTBID TESS Last Admin: 04/18/20 08:30 Dose: 0.5 mg Documented by: Formoterol Fumarate (Formoterol Fumarate Neb 20 Mcg/2 Ml) 20 mcg INH RTBID TESS Last Admin: 04/18/20 08:30 Dose: 20 mcg Documented by: Furosemide (Furosemide 20 Mg Tablet) 20 mg PO BIDDIURETIC [facility] Last Admin: 04/18/20 05:58 Dose: 20 mg Documented by: Levofloxacin (Levaquin 750 Mg/150 Ml) 750 mg in 150 mls @ 100 mls/hr IV DAILY [facility] Last Infusion: 04/18/20 10:50 Dose: Infused Documented by: Lorazepam (Lorazepam 0.5 Mg Tablet) 0.5 mg PO Q6H PRN PRN Reason: Anxiety Last Admin: 04/18/20 12:35 Dose: 0.5 mg Documented by: Methylprednisolone (Methylprednisolone Succinate 40 Mg/Ml Vial) 40 mg IVP TID [facility] Metoprolol Tartrate (Metoprolol Tartrate 50 Mg Tablet) 75 mg PO BID [facility] Last Admin: 04/18/20 09:14 Dose: 75 mg Documented by: Multi-Ingredient Mouthwash/Gargle (Gi Cocktail 120 Ml Bottle) 30 ml PO Q4H PRN PRN Reason: Abdominal Pain Oxycodone HCl (Oxycodone 5 Mg Tablet) 5 mg PO Q4HR PRN PRN Reason: PAIN Pantoprazole Sodium (Pantoprazole 40 Mg Tablet) 40 mg PO QDAC [facility] Last Admin: 04/18/20 05:58 Dose: 40 mg Documented by: Rivaroxaban (Rivaroxaban 10 Mg Tablet) 20 mg PO 1700 [facility] Last Admin: 04/17/20 17:38 Dose: 20 mg Documented by: Simethicone (Simethicone Chew 80 Mg Tablet) 80 mg PO 0900,1300,1800,2100 [facility] Last Admin: 04/18/20 09:16 Dose: 80 mg Documented by: Sodium Chloride (Sodium Chloride Flush 0.9% 10 Ml Syringe) 10 ml IVP PRN PRN PRN Reason: NEEDED PER PROVIDER ORDERS Last Admin: 04/17/20 13:50 Dose: 10 ml Documented by: Sodium Chloride (Sodium Chloride Flush 0.9% 10 Ml Syringe) 10 ml IVP 0100,0900,1700 [facility] Last Admin: 04/18/20 09:17 Dose: 10 ml Documented by: Ipratropium/Albuterol [Duoneb] 3 ml INH Q4H PRN 04/10/16 Aspirin [Aspirin EC] 81 mg PO DAILY 04/16/20 Budesonide/Formoterol Fumarate [Symbicort 160-4.5 Mcg Inhaler] 2 puffs PO BID 04/16/20 Furosemide [Lasix] 20 mg PO BID 04/16/20 Metoprolol Tartrate [Lopressor] 75 mg PO BID 04/16/20 Rivaroxaban [Xarelto] 20 mg PO DAILY 04/16/20 Tiotropium [place] [Spiriva] 1 puffs PO DAILY 04/16/20 Objective - Vital Signs/Intake & Output Vital Signs: Vital Signs x48h Temp Pulse Pulse Resp BP BP Pulse Ox 04/18/20 11:45 36.5 C 110 H 20 125/64 99 04/18/20 09:14 148/73 H 04/18/20 08:30 97 20 04/18/20 07:45 36.3 C L 94 16 139/99 H 96 Intake & Output: Intake & Output 04/15/20 04/16/20 04/17/20 04/18/20 23:59 23:59 23:59 23:59 Intake Total 2780.000 952 270 Output Total 600 1300 1050 Balance 2180.000 -348 -780 - Objective General Appearance: positive: Alert, Mild distress. negative: Lethargic Eyes Bilateral: positive: Normal inspection, PERRL, No lid inflammation ENT: positive: ENT inspection nml, No signs of dehydration. negative: Purulent nasal drainage Neck: positive: Nml inspection, Trachea midline. negative: Thyromegaly, Tra cheal deviation Respiratory: positive: Chest non-tender. negative: Breath sounds nml, Wheezes Cardiovascular: positive: Irregularly irregular, Tachycardia. negative: Bradycardia, Systolic murmur, Diastolic murmur Peripheral Pulses: 2+ Radial (R), 2+ Radial (L) Abdomen: positive: Non-tender, Nml bowel sounds. negative: Tenderness, Guarding, Rebound Back: positive: Nml inspection Skin: positive: Color nml, Warm, Dry. negative: Cyanosis, Diaphoresis, Pallor Extremities: positive: Non-tender, Nml appearance. negative: Calf tenderness Neurologic/Psychiatric: positive: Oriented x3, Sensation nml, Mood/affect nml. negative: Weakness, Sensory loss, Facial droop, Slurred/abnml speech, Depressed mood/affect - Lab Results Fish Bones: 04/18/20 04:43 04/18/20 04:43 Other Labs: Lab Results x24hrs 04/18/20 04/18/20 Range/Units 04:43 04:43 WBC 12.2 H (4.8-10.8) x10^3/uL RBC 3.92 L (4.20-5.40) 10^6/uL Hgb 10.1 L (12.0-16.0) g/dL Hct 35.5 L (37.0-47.0) % MCV 90.6 (81.0-99.0) fL MCH 25.8 L (27.0-31.0) pg MCHC 28.5 L (32.0-36.0) g/dL RDW 14.7 (12.0-15.0) % Plt Count 352 (130-450) 10^3/uL MPV 9.8 (7.9-10.8) fL Neut # (Auto) 11.3 H (1.5-6.6) 10^3/uL Lymph # (Auto) 0.6 L (1.5-3.5) 10^3/uL [place] # (Auto) 0.3 (0.0-1.0) 10^3/uL Eos # (Auto) 0.0 (0.0-0.7) 10^3/uL Baso # (Auto) 0.0 (0.0-0.1) 10^3/uL Absolute Nucleated RBC 0.00 x10^3/uL Nucleated RBC % 0.0 /100WBC Sodium 138 (135-145) mmol/L Potassium 4.7 (3.5-5.0) mmol/L Chloride 90 L (101-111) mmol/L Carbon Dioxide 38 H (21-32) mmol/L Anion Gap 10.0 (6-13) BUN 17 (6-20) mg/dL Creatinine 0.7 (0.4-1.0) mg/dL Estimated GFR (MDRD) 86 L (>89) Glucose 144 H (70-100) mg/dL Calcium 8.9 (8.5-10.3) mg/dL ABX Reporting Has patient been on IV antibiotics over the past 48 hours?: Yes Sepsis Event Note (H) - Evaluation Current Stage of Sepsis: Ruled out Assessment/Plan - Problem List (1) Generalized weakness Impression: Patient reported she feel very shortness breathing on exertion, very weak, and feel anxiety as well. We will check troponin to rule out ACS, then order EKG as needed. pt has hx of afib. continue tele and vital signal monitor and PT Evaluation and treatment. (2) COPD exacerbation Impression: 04/18 Patient has 96% to 99% on 4 L oxygen, patient take 4 L oxygen at home. We will reduce Solu-Medrol dosage. Continue supplemental oxygen, continue breathing treatment Patient has cigarette smoking one pack per day, Patient also is home oxygen dependent. Patient present shortness of breathing in the admission. Patient report she feel better on today. We will reduce Solu-Medrol to 60 mg 3 times daily, Continue DuoNeb, Pulmicort and formoterol, Continue supplemental oxygen. (3) Pneumonia 04/18 We will continue Lovenox. X-ray show Atopica pneumonia, patient report she had cough With yellowish sputum , continue Levaquin (4) A-fib stable, continue metoprolol tartrate 75 mg p.o. twice daily and Xarelto 20 mg p.o. daily. (5) HTN (hypertension) stable, continue metoprolol titrate and Lasix. Will continue. (6) Congestive heart failure Not in exacerbation pt is On Lasix 20 mg p.o. twice daily and metoprolol tartrate 75 mg p.o. twice daily. (7)Mortality obesity Patient BMI 66, Advised patient loss of the weight, We will continue physical therapist/Occupation therapist (8)left big toe pain X-ray will show no acute bony fracture or dislocation, Suggestion of degenerative process, Big toe has mild erythema and very mild edema, .Not indicated to have infection. Patient also has A1c 5.6. Uric acid is in the normal range. We will let the patient have pain control, Work with physical therapist
[2020-04-18] MEDS: methylPREDNISolone SUCCINATE 40 MG/ML VIAL IVP SCH ×2 (14:35→22:28)
[2020-04-18] MEDS: SODIUM CHLORIDE FLUSH 0.9% 10 ML SYRINGE IVP PRN (14:35)
[2020-04-18] MEDS: RIVAROXABAN 10 MG TABLET PO SCH (17:20)
[2020-04-19] MEDS: SODIUM CHLORIDE FLUSH 0.9% 10 ML SYRINGE IVP SCH ×2 (00:52→08:56)
[2020-04-19 05:36] LABS: BASOPHILS % (AUTO) 0.1 %; HGB - HEMOGLOBIN 10.8 g/dL (12.0-16.0); LYMPHOCYTES # (AUTO) 0.6 10^3/uL (1.5-3.5); LYMPHOCYTES % (AUTO) 5.3 %; MEAN CORPUSCULAR HGB CONC 29.1 g/dL (32.0-36.0); MEAN CORPUSCULAR VOLUME 89.4 fL (81.0-99.0); MEAN PLATELET VOLUME 9.7 fL (7.9-10.8); MONOCYTES # (AUTO) 0.3 10^3/uL (0.0-1.0); MONOCYTES % (AUTO) 3.1 %; NEUTROPHILS # (AUTO) 10.1 10^3/uL (1.5-6.6); PLT - PLATELET COUNT 350 10^3/uL (130-450); RED BLOOD COUNT 4.15 10^6/uL (4.20-5.40); RED CELL DISTRIBUTION WIDTH 14.6 % (12.0-15.0); WHITE BLOOD COUNT 11.1 x10^3/uL (4.8-10.8)
[2020-04-19 06:21] LABS: CREATININE 0.7 mg/dL (0.4-1.0)
[2020-04-19] MEDS: HYDROcod/ACETAM 7.5 MG/325 MG TABLET PO PRN ×2 (06:22→12:29)
[2020-04-19] MEDS: PANTOPRAZOLE 40 MG TABLET PO SCH (06:24)
[2020-04-19] MEDS: SODIUM CHLORIDE FLUSH 0.9% 10 ML SYRINGE IVP PRN (06:25)
[2020-04-19] MEDS: methylPREDNISolone SUCCINATE 40 MG/ML VIAL IVP SCH (06:25)
[2020-04-19] MEDS: BUDESONIDE 0.5 MG/2 ML NEB INH SCH (07:24)
[2020-04-19] MEDS: FORMOTEROL FUMARATE NEB 20 MCG/2 ML INH SCH (07:24)
[2020-04-19] MEDS: IPRATROPIUM/ALBUTEROL 3 ML NEB INH PRN (07:24)
[2020-04-19] MEDS: FUROSEMIDE 20 MG TABLET PO SCH (07:36)
[2020-04-19] MEDS: METOPROLOL TARTRATE 50 MG TABLET PO SCH (08:53)
[2020-04-19] MEDS: SIMETHICONE CHEW 80 MG TABLET PO SCH ×2 (08:56→12:29)
[2020-04-19] MEDS ORDERED: LORazepam 0.5 MG TABLET PO SCH (09:00)
[2020-04-19] MEDS ORDERED: polyethylene glycoL 3350 17 GM PACKET PO SCH (09:00)
[2020-04-19] MEDS ORDERED: levoFLOXacin 250 MG TABLET PO SCH (09:00)
--- NOTE | 2020-04-19 11:09 | Discharge Plan ---
Discharge Plan Problem Reviewed?: Yes Disposition: Home, Self Care Condition: Stable Prescriptions: Albuterol Sulf [Ventolin Hfa Inhaler] 1 - 2 puffs INH Q4HR PRN #1 inhaler PRN Reason: Shortness Of Air/Wheezing HYDROcodone/ACET 7.5/325 [[place] 7.5/325] 1 tab PO Q6HR PRN #15 g PRN Reason: Pain predniSONE [Deltasone] 10 mg PO [id number] #16 tab levoFLOXacin [Levaquin] 750 mg PO DAILY #12 g Diet: Regular Activity Restrictions: Activity as Tolerated Shower Restrictions: No (fall precaution) Instruction Topics: Levofloxacin tablets, Acetaminophen Hydrocodone tablets or capsules, Albuterol inhalation solution, Prednisone tablets, COPD, Pneumonia, COPD Inhalers, Asthma Control Health Concerns: COPD exacerbation and pneumonia Plan of Treatment: you are prescribed antibiotics Levaquin to finish pneumonia treatment course, and Albuterol inhaler, short term of Prednisone for your COPD treatment. strongly advise you quit cigarette smoking. Care Goals: stabilization and improvement of your medical condition Assessment: discussed the care plan with you, answered your questions, you understood Additional Instructions or Follow Up instructions: You may followup with your PCP in one to two weeks, encourage you have pulmonary rehab. Should your symptoms return or worsen, you may present ER or call 911 for help. Follow-Up Care: [facility] - Pulmonary No Smoking: If you smoke, Please STOP! Call for help.
--- NOTE | 2020-04-19 11:21 | DISCHARGE SUMMARY ---
Discharge Summary Admit Date: 04/16/20 Discharge Date: 04/19/20 Discharging Provider: Jimmy Walter Primary Care Provider: Milla Price Condition at Discharge: Stable Discharge Disposition: 01 Home, Self Care Discharge Facility Name: Home - DIAGNOSES Discharge Diagnoses with Status of Each Condition: (1) COPD exacerbation Stable, as the patient's baseline, Patient has 93 to 97% sats on 4 L oxygen. Patient has no respiratory distress at this point. Patient usually take 4 L oxygen in the home. Patient is prescribed prednisone, advise pt have Pulmonary rehab in [facility] [place] [facility]. refill pt's home meds of albuterol and Sympicort INH. Patient was strongly advised to quit cigarette smoking. (2) Pneumonia stable, Patient has no fever,Patient has no active respiratory distress, Patient's respiratory status is as her baseline. Patient is prescribed Levaquin to finish the treatment course. (3) A-fib stable, refill of metoprolol tartrate and Xarelto (4) HTN (hypertension) stable, Resume home medications (6) Congestive heart failure stable, Resume home medication (7)Mortality obesity Patient BMI 66, Advised patient loss of the weight (8)left big toe pain resolved. X-ray show no acute bony fracture or dislocation, Suggestion of degenerative process, Not indicated to have infection. Patient also has A1c 5.6. Uric acid is in the normal range. - HPI History of Present Illness: refer from Dr. Woodard's HPI on 04/16/20 Patient is a 60-year-old morbidly obese female with medical history significant for atrial fibrillation on anticoagulant, borderline hypertension, CHF, obstructive sleep apnea and obesity hypoventilation syndrome and tobacco abuse who presented to the ED with complaint of dyspnea. She describes that she woke up this morning and the first thing she is did was reached for her inhaler. Last night she felt like she was having a bit of a cold. She denied fever or chills. She has been coughing. The sputum color ranges from clear to yellowish-green. She denied chest pain, abdominal pain, nausea, vomiting, fever or chills. She has a walker to get around at home but mainly glides using the garcia. At rest she is on 3 L of oxygen at home and 5 L with ambulation. In the ED she had a WBC of 12.6. CXR raised concern for atypical pneumonia. As a result she was presented for admission. - HOSPITAL COURSE Hospital Course: Patient was admitted for dyspnea. Patient was found to have COPD exacerbation and pneumonia. Patient was treated antibiotics Levaquin in the hospital, was treated with intravenous Solu-Medrol and breathing treatment. After treatment, patient has no active respiratory distress, Patient's respiratory status is as her baseline. Detailed hospital course please review discharge diagnosis summary - ALLERGIES Allergies/Adverse Reactions: Allergies Allergy/AdvReac Type Severity Reaction Status Date / Time erythromycin base Allergy Severe Hives Verified 04/16/20 09:48 [Erythromycin Base] codeine [Codeine] Allergy Unknown unknown Verified 04/16/20 09:48 - MEDICATIONS Home Medications: Ambulatory Orders Medication Instructions Recorded Confirmed Ipratropium/Albuterol [Duoneb] 3 ml INH Q4H PRN 04/10/16 04/16/20 Aspirin [Aspirin EC] 81 mg PO DAILY 04/16/20 04/16/20 Furosemide [Lasix] 20 mg PO BID 04/16/20 04/16/20 Tiotropium [place] [Spiriva] 1 puffs PO DAILY 04/16/20 04/16/20 Albuterol Sulf [Ventolin Hfa 1 - 2 puffs INH Q4HR PRN #1 inhaler 04/19/20 Inhaler] Budesonide/Formoterol Fumarate 2 puffs PO BID PRN #1 inhaler 04/19/20 [Symbicort 160-4.5 Mcg Inhaler] HYDROcodone/ACET 7.5/325 [[place] 1 tab PO Q6HR PRN #15 g 04/19/20 7.5/325] Metoprolol Tartrate [Lopressor] 75 mg PO BID #60 tab 04/19/20 Rivaroxaban [Xarelto] 20 mg PO DAILY #30 tab 04/19/20 levoFLOXacin [Levaquin] 750 mg PO DAILY #12 g 04/19/20 predniSONE [Deltasone] 10 mg PO [id number] #[id number] tab 04/19/20 - PHYSICAL EXAM AT DISCHARGE General Appearance: positive: No acute distress, Alert. negative: Lethargic Eyes Bilateral: positive: Normal inspection, PERRL, No lid inflammation ENT: positive: ENT inspection nml, No signs of dehydration. negative: Purulent nasal drainage Neck: positive: Nml inspection, Trachea midline. negative: Thyromegaly, Tracheal deviation Respiratory: positive: Chest non-tender, No respiratory distress. negative: Wheezes, Rales Cardiovascular: positive: Regular rate & rhythm, No murmur. negative: Tachycardia, Bradycardia, Systolic murmur, Diastolic murmur Peripheral Pulses: positive: 2+ Abdomen: positive: Non-tender, Nml bowel sounds. negative: Tenderness, Guarding, Rebound Back: positive: Nml inspection Skin: positive: Color nml, Warm, Dry. negative: Cyanosis, Diaphoresis, Pallor Extremities: positive: Non-tender, Full ROM. negative: Calf tenderness Neurologic/Psychiatric: positive: Oriented x3, Motor nml, Sensation nml. negative: Weakness, Sensory loss, Facial droop, Slurred/abnml speech, Depressed mood/affect - LABS Result Diagrams: 04/19/20 05:06 04/19/20 05:06 - SEPSIS Current Stage of Sepsis: Ruled out - FOLLOW UP Follow Up: you are prescribed antibiotics Levaquin to finish pneumonia treatment course, and Albuterol inhaler, short term of Prednisone for your COPD treatment. strongly advise you quit cigarette smoking. You may followup with your PCP in one to two weeks, encourage you have pulmonary rehab. Should your symptoms return or worsen, you may present ER or call 911 for help. - TIME SPENT Time Spent in Discharge (Minutes): 30
[2020-04-19 13:29] VITALS: BP 136/94
== END 2020-04-19 13:10 | disposition home or self-care (01) | DRG 190 ==
LOC: EDUNIT# → ED 09:41 → MS3 10:50
PROVIDERS: ADMIT Internal Medicine; ATTEND Nurse Practitioner Gerontology
DX: J44.0 Chronic obstructive pulmonary disease with (acute) lower respiratory infection (principal); J18.9 Pneumonia, unspecified organism; E66.2 Morbid (severe) obesity with alveolar hypoventilation; F17.200 Nicotine dependence, unspecified, uncomplicated; Z68.44 Body mass index [BMI] 60.0-69.9, adult; F17.210 Nicotine dependence, cigarettes, uncomplicated; Z20.822 Contact with and (suspected) exposure to COVID-19; J44.1 Chronic obstructive pulmonary disease with (acute) exacerbation; Z99.81 Dependence on supplemental oxygen; I48.91 Unspecified atrial fibrillation; Z79.01 Long term (current) use of anticoagulants; I11.0 Hypertensive heart disease with heart failure; I50.9 Heart failure, unspecified; M79.675 Pain in left toe(s); F41.9 Anxiety disorder, unspecified; R53.1 Weakness
CPT/HCPCS: 36415; 71045; 73660; 80048; 80053; 82803; 83036; 83605; 83690; 83880; 84484; 84550; 85025; 85610; 85730; 87040; 87631; 92610; 93005; 94640; 97161; 97165; 99285; A9270; J7120; J7626; 0202U

== ENCOUNTER 2020-06-15 12:26 | Outpatient (CLI) | payer MEDICARE, MEDICAID | END 2020-06-15 12:27 | disposition critical access hospital (66) | LOC: EMS 12:26 | DX: R06.09 Other forms of dyspnea (principal) | CPT/HCPCS: A0425; A0429 ==

== ENCOUNTER 2020-06-15 12:57 | Inpatient (IN) | payer MEDICARE, MEDICAID ==
[2020-06-15] MEDS ORDERED: IPRATROPIUM/ALBUTEROL 3 ML NEB INH STA (13:17)
[2020-06-15] MEDS ORDERED: ALBUTEROL NEB 2.5 MG/3 ML INH STA ×2 (13:17→15:12)
[2020-06-15] MEDS ORDERED: methylPREDNISolone SUCCINATE 125 MG/2 ML VIAL IVP STA (13:19)
--- NOTE | 2020-06-15 13:22 | ED Physician Documentation ---
History of Present Illness - Stated complaint Stated Complaint: SOA - Chief complaint Chief Complaint: Resp - Additonal information Additional information: 60-year-old female who carries a history of oxygen dependent COPD, congestive heart failure, hypertension, and atrial fibrillation presents to the emergency department with 2 days increased dyspnea. She reports that she did use her albuterol nebulizer at home with mild relief of the symptoms. She is typically on 2 to 3 L baseline O2 but has had to increase to 5 L over the last 24 hours. When EMS presented to the scene she was saturating 86%. She was Given Combivent in route. Patient reports increased cough but no fevers. No unilateral leg swelling. She is compliant with her diuretics as well as her anticoagulation. Patient quit smoking 3 years ago. No recent travel. Review of Systems Constitutional: denies: Fever, Chills Eyes: reports: Reviewed and negative Ears: reports: Reviewed and negative Nose: reports: Reviewed and negative Throat: reports: Reviewed and negative Cardiac: reports: Palpitations. 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 : None HEENT: None Psych: Anxiety Musculoskeletal: Osteoarthritis Derm: None - Past Surgical History Past Surgical History: Yes General: Other /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 - Present Medications Home Medications: Ambulatory Orders Medication Instructions Recorded Confirmed Ipratropium/Albuterol [Duoneb] 3 ml INH Q4H PRN 04/10/16 06/15/20 Aspirin [Aspirin EC] 81 mg PO DAILY 04/16/20 06/15/20 Furosemide [Lasix] 20 mg PO BID 04/16/20 06/15/20 Tiotropium [place] [Spiriva] 1 puffs PO DAILY 04/16/20 06/15/20 Albuterol Sulf [Ventolin Hfa 1 - 2 puffs INH Q4HR PRN #1 inhaler 04/19/20 06/15/20 Inhaler] Budesonide/Formoterol Fumarate 2 puffs PO BID PRN #1 inhaler 04/19/20 06/15/20 [Symbicort 160-4.5 Mcg Inhaler] Metoprolol Tartrate [Lopressor] 75 mg PO BID #60 tab 04/19/20 06/15/20 Rivaroxaban [Xarelto] 20 mg PO DAILY #30 tab 04/19/20 06/15/20 - Allergies Allergies/Adverse Reactions: Allergies Allergy/AdvReac Type Severity Reaction Status Date / Time erythromycin base Allergy Severe Hives Verified 06/15/20 13:11 [Erythromycin Base] codeine [Codeine] Allergy Unknown unknown Verified 06/15/20 13:11 - Social History Does the pt smoke?: Yes Smoking Status: Former smoker Does the pt drink ETOH?: No Does the pt have substance abuse?: Yes - Immunizations Immunizations are current?: Yes - POLST Patient has POLST: No POLST Status: Full Code PD ED PE EXPANDED - General General: Alert, Disheveled, poorly kept, Other (Tachypneic increased work of breathing.) - Neck Neck: Supple w/out meningeal sx. No: Adenopathy - Cardiac Cardiac: Irregularly irregular, Murmur Present, Cap refill < 2 sec. No: Radial strong equal (1+ radial pulse 1+ DP pulse. Brisk cap refill warm extremities.) - Respiratory Respiratory: Labored, Wheezing (Generalized rhonchorous lung sounds as well as wheezing in all lung mg mild tachypnea.) - Abdomen Abdomen: Normal Bowel sounds. No: Tender to palpation (Abdominal exam limited by obesity and body habitus.) - Derm Derm: Normal color, Warm and dry Results - Vitals Vitals: Vital Signs - 24 hr 06/15/20 06/15/20 06/15/20 13:05 13:26 13:39 Temperature 37.4 C Heart Rate 127 H 117 H 112 H Respiratory 22 18 20 Rate Blood Pressure 159/142 H 142/102 H O2 Saturation 93 99 06/15/20 06/15/20 06/15/20 14:09 14:30 15:00 Temperature 36.8 C 36.8 C Heart Rate 120 H 122 H 98 Respiratory 22 25 H 24 Rate Blood Pressure 165/146 H 102/77 139/79 H O2 Saturation 99 99 98 06/15/20 06/15/20 15:10 15:30 Temperature Heart Rate 97 98 Respiratory 20 22 Rate Blood Pressure 139/74 H O2 Saturation 98 Oxygen O2 Source Nasal cannula Oxygen Flow Rate 4 - EKG (time done) 1328 Rate: Rate (enter#) (105) Rhythm: Atrial fibrillation [place]: Normal Intervals: Prolonged QT QRS: Normal Ischemia: Normal ST segments Compare to prior EKG: Unchanged from prior EKG Computer interpretation: Agree with computer - Labs Labs: Laboratory Tests 06/15/20 06/15/20 06/15/20 13:30 13:30 13:30 WBC 10.5 RBC 4.24 Hgb 10.8 L Hct 37.8 MCV 89.2 MCH 25.5 L MCHC 28.6 L RDW 14.7 Plt Count 351 MPV 9.3 Neut # (Auto) 9.1 H Lymph # (Auto) 0.8 L Rutherford # (Auto) 0.5 Eos # (Auto) 0.0 Baso # (Auto) 0.0 Absolute Nucleated RBC 0.00 Nucleated RBC % 0.0 VBG pH VBG pCO2 VBG pO2 VBG HCO3 VBG Total CO2 VBG O2 Saturation VBG Base Excess Sodium 141 Potassium 4.1 Chloride 91 L Carbon Dioxide 42 H* Anion Gap 8.0 BUN 9 Creatinine 0.5 Estimated GFR (MDRD) 126 Glucose 128 H Calcium 9.3 Total Bilirubin 0.6 AST 15 ALT 16 Alkaline Phosphatase 66 Troponin I High Sens 6.4 B-Natriuretic Peptide Total Protein 7.4 Albumin 3.6 Globulin 3.8 Albumin/Globulin Ratio 0.9 L Lipase 20 L Nasal Adenovirus (PCR) Nasal B. parapertussis DNA (PCR) Nasal Coronavir 229E PCR Nasal Coronavir HKU1 PCR Nasal Coronavir NL63 PCR Nasal Coronavir OC43 PCR Nasal Enterovir/Rhinovir PCR Nasal Influenza B PCR Nasal Influenza A PCR Nasal Parainfluen 1 PCR Nasal Parainfluen 2 PCR Nasal Parainfluen 3 PCR Nasal Parainfluen 4 PCR Nasal RSV (PCR) Nasal B.pertussis DNA PCR Nasal C.pneumoniae (PCR) Larry Human Metapneumo PCR Nasal M.pneumoniae (PCR) Nasal SARS-CoV-2 (PCR) 06/15/20 06/15/20 06/15/20 13:30 13:37 14:42 WBC RBC Hgb Hct MCV MCH MCHC RDW Plt Count MPV Neut # (Auto) Lymph # (Auto) Rutherford # (Auto) Eos # (Auto) Baso # (Auto) Absolute Nucleated RBC Nucleated RBC % VBG pH 7.353 VBG pCO2 87.0 H VBG pO2 27.6 VBG HCO3 47.3 H VBG Total CO2 49.9 H VBG O2 Saturation 53.0 L VBG Base Excess 17.8 H Sodium Potassium Chloride Carbon Dioxide Anion Gap BUN Creatinine Estimated GFR (MDRD) Glucose Calcium Total Bilirubin AST ALT Alkaline Phosphatase Troponin I High Sens B-Natriuretic Peptide 146 H Total Protein Albumin Globulin Albumin/Globulin Ratio Lipase Nasal Adenovirus (PCR) NOT DETECTED Nasal B. parapertussis DNA (PCR) NOT DETECTED Nasal Coronavir 229E PCR NOT DETECTED Nasal Coronavir HKU1 PCR NOT DETECTED Nasal Coronavir NL63 PCR NOT DETECTED Nasal Coronavir OC43 PCR NOT DETECTED Nasal Enterovir/Rhinovir PCR NOT DETECTED Nasal Influenza B PCR NOT DETECTED Nasal Influenza A PCR NOT DETECTED Nasal Parainfluen 1 PCR NOT DETECTED Nasal Parainfluen 2 PCR NOT DETECTED Nasal Parainfluen 3 PCR NOT DETECTED Nasal Parainfluen 4 PCR NOT DETECTED Nasal RSV (PCR) NOT DETECTED Nasal B.pertussis DNA PCR NOT DETECTED Nasal C.pneumoniae (PCR) NOT DETECTED Larry Human Metapneumo PCR NOT DETECTED Nasal M.pneumoniae (PCR) NOT DETECTED Nasal SARS-CoV-2 (PCR) NOT DETECTED - Rads (name of study) CXR Radiology: Final report received (Cardiomegaly. No gross pulmonary infi ltrates.) PD MEDICAL DECISION MAKING - ED course Complexity details: reviewed results, re-evaluated patient, d/w patient ED course: 60-year-old female presents to the emergency department for 2 days worsening shortness of breath. This is in the setting of oxygen dependent COPD. She was hypoxic for EMS with a saturation of 86% they increased her baseline oxygen from 3 L to 5 L and when she was here in the emergency department her saturations had normalized to 93%. She was given 2 nebulizers with some improvement however she is noted to be markedly hypercapnic. She was given Solu-Medrol but will need to be admitted for hypercarbic respiratory failure. CXR without focal infiltrates, defer abx at this time. This case was discussed with Dr. Woodard who agrees to bring the patient in for further evaluation and treatment. She will be admitted to the ICU in case she needs Bipap overnight Departure - Departure Disposition: 66 [facility] DC/Xfer Clinical Impression: COPD exacerbation, CHF (congestive heart failure) Hypercapnic respiratory failure Qualifiers: Chronicity: acute on chronic Qualified Code(s): J96.22 - Acute and chronic r espiratory failure with hypercapnia Discharge Date/Time: 06/15/20 16:30
--- OUTSIDE RECORDS SUMMARY | 2020-06-15 13:25 | EXTERNAL MEDICAL SUMMARY RPT | Continuity of Care Document ---
:1960 Demographics Phone Unavailable Preferred Language Unknown Marital Status Unknown Jainism Affiliation Unknown Race Unknown Ethnic Group Unknown Author Organization [place] Address [address] [phone] Phone Social History date description facility [phone]
[2020-06-15 13:40] LABS: BASOPHILS % (AUTO) 0.2 %; EOSINOPHILS % (AUTO) 0.4 %; HCT - HEMATOCRIT 37.8 % (37.0-47.0); HGB - HEMOGLOBIN 10.8 g/dL (12.0-16.0); LYMPHOCYTES # (AUTO) 0.8 10^3/uL (1.5-3.5); LYMPHOCYTES % (AUTO) 7.8 %; MEAN CORPUSCULAR HEMOGLOBIN 25.5 pg (27.0-31.0); MEAN CORPUSCULAR HGB CONC 28.6 g/dL (32.0-36.0); MEAN CORPUSCULAR VOLUME 89.2 fL (81.0-99.0); MEAN PLATELET VOLUME 9.3 fL (7.9-10.8); MONOCYTES # (AUTO) 0.5 10^3/uL (0.0-1.0); NEUTROPHILS # (AUTO) 9.1 10^3/uL (1.5-6.6); NEUTROPHILS % (AUTO) 86.3 %; PLT - PLATELET COUNT 351 10^3/uL (130-450); RED BLOOD COUNT 4.24 10^6/uL (4.20-5.40); RED CELL DISTRIBUTION WIDTH 14.7 % (12.0-15.0); WHITE BLOOD COUNT 10.5 x10^3/uL (4.8-10.8)
--- NOTE | 2020-06-15 13:54 | XRAY Report ---
PROCEDURE: Chest 1 View X-Ray INDICATIONS: Chest Pain TECHNIQUE: One view of the chest was acquired. COMPARISON: 04/16/2020 FINDINGS: Surgical changes and devices: None. Lungs and pleura: No pleural effusions or pneumothorax. No gross infiltrates. Mediastinum: Mediastinal contours appear normal. Cardiomegaly. Bones and chest wall: No suspicious bony lesions. Overlying soft tissues appear unremarkable. IMPRESSION: 1. Cardiomegaly. 2. No gross pulmonary infiltrates. Reviewed by: Mauro Lucas MD on 06/15/2020 1:53 PM PDT Approved by: Mauro Lucas MD on 06/15/2020 1:53 PM PDT Station ID: [id number]
[2020-06-15 13:56] LABS: ALBUMIN 3.6 g/dL (3.2-5.5); ALBUMIN/GLOBULIN RATIO 0.9 (1.0-2.2); BILIRUBIN,TOTAL 0.6 mg/dL (0.2-1.0); CALCIUM 9.3 mg/dL (8.5-10.3); CREATININE 0.5 mg/dL (0.4-1.0); POTASSIUM 4.1 mmol/L (3.5-5.0); TOTAL PROTEIN 7.4 g/dL (6.7-8.2)
[2020-06-15] MEDS ORDERED: METOPROLOL TARTRATE 50 MG TABLET PO STA (14:35)
[2020-06-15 14:40] LABS: B. PARAPERTUSSIS- RESP PCR PAN NOT DETECTED; B. PERTUSSIS- RESP PCR PANEL NOT DETECTED; C. PNEUMONIAE- RESP PCR PANEL NOT DETECTED; CORONAVIRUS 229E-RESP PCR NOT DETECTED; CORONAVIRUS HKU1-RESP PCR NOT DETECTED; CORONAVIRUS NL63-RESP PCR NOT DETECTED; CORONAVIRUS OC43-RESP PCR NOT DETECTED; HUMAN METAPNEUMOVIRUS NOT DETECTED; INFLUENZA A- RESP PCR PANEL NOT DETECTED; INFLUENZA B - RESP PCR PANEL NOT DETECTED; M. PNEUMONIAE- RESP PCR PANEL NOT DETECTED; PARAINFLUENZA VIRUS 1 NOT DETECTED; PARAINFLUENZA VIRUS 2 NOT DETECTED; PARAINFLUENZA VIRUS 3 NOT DETECTED; PARAINFLUENZA VIRUS 4 NOT DETECTED; RHINOVIRUS/ENTEROVIRUS NOT DETECTED; RSV- RESP PCR PANEL NOT DETECTED; SARS-CoV-2 -RESP PCR PANEL NOT DETECTED
[2020-06-15 14:53] LABS: VBG BASE EXCESS 17.8 mmol/L (-2 - +2); VBG HCO3 47.3 mmol/L (23-28); VBG PH 7.353 (7.31-7.41); VBG PO2 27.6 mmHg (25-47); VBG TOTAL CO2 49.9 mmol/L (24-29)
[2020-06-15] MEDS ORDERED: ACETAMINOPHEN 325 MG TABLET PO PRN (15:33)
--- NOTE | 2020-06-15 15:42 | HISTORY & PHYSICAL EXAMINATION ---
Chief Complaint - Chief Complaint Chief Complaint: dyspnea and hypoxia History of Present Illness - Admitted From Admitted From:: [facility] ED - History Obtained From Records Reviewed: yes History obtained from: patient - History of Present Illness HPI Comment/Other: 60-year-old female with medical history significant for atrial fibrillation on Xarelto, CHF, hypertension, COPD on 2 to 3 L of oxygen via nasal cannula at home who presented to the ED with complaint of dyspnea for 2 days. She has been using her inhalers with no significant improvement. As a result she called EMS today. Upon arrival she was noted to be on 5 L of oxygen via nasal cannula with an oxygen saturation of 86%. In the ED she was noted to have a heart rate in the 120s. VBG showed her PCO2 of 87. As a result she was presented for admission for further treatment. At bedside she is alert and oriented x4. She denies chest pain, abdominal pain, nausea, vomiting, fever or chills. Her oxygen saturation is 91% on 4 L via nasal cannula. However with ambulation her oxygen saturation drops into the 80s. History - Past Medical History Cardiovascular: reports: None, Congestive heart failure, Hypertension, Atrial fibrillation Respiratory: reports: COPD, Pneumonia, Sleep apnea Neuro: reports: None Endocrine/Autoimmune: reports: Other GI: reports: None RN PSYCHIATRIC: reports: None : reports: None HEENT: reports: None Psych: reports: Anxiety Musculoskeletal: reports: Osteoarthritis Derm: reports: None MRSA Hx?: No - Past Surgical History General: reports: Other /RN PSYCHIATRIC: reports: section - Family & Social History Family History: Mother: Cancer (throat), Diabetes, Type 2, Hypertension, Father: Diabetes, Type 2, Hypertension Social History Notes: She smokes 1 pack a day. She previously smoked 2 to 3 packs a day and had been smoking for 40 years. She denied alcohol or recreational drug use. - POLST Patient has POLST: No POLST Status: Full Code Meds/Allgy - Home Medications Home Medications: Ambulatory Orders Medication Instructions Recorded Confirmed Ipratropium/Albuterol [Duoneb] 3 ml INH Q4H PRN 04/10/16 06/15/20 Aspirin [Aspirin EC] 81 mg PO DAILY 04/16/20 06/15/20 Furosemide [Lasix] 20 mg PO BID 04/16/20 06/15/20 Tiotropium [place] [Spiriva] 1 puffs PO DAILY 04/16/20 06/15/20 Albuterol Sulf [Ventolin Hfa 1 - 2 puffs INH Q4HR PRN #1 inhaler 04/19/20 06/15/20 Inhaler] Budesonide/Formoterol Fumarate 2 puffs PO BID PRN #1 inhaler 04/19/20 06/15/20 [Symbicort 160-4.5 Mcg Inhaler] Metoprolol Tartrate [Lopressor] 75 mg PO BID #60 tab 04/19/20 06/15/20 Rivaroxaban [Xarelto] 20 mg PO DAILY #30 tab 04/19/20 06/15/20 - Allergies Allergies/Adverse Reactions: Allergies Allergy/AdvReac Type Severity Reaction Status Date / Time erythromycin base Allergy Severe Hives Verified 06/15/20 13:11 [Erythromycin Base] codeine [Codeine] Allergy Unknown unknown Verified 06/15/20 13:11 Review of Systems - Constitutional Constitutional: denies: Fever, Chills - Eyes Eyes: denies: Vision loss, Dipolpia - Ears, Nose & Throat Ears, Nose & Throat: denies: Ear pain, Sore throat, Hoarseness - Cardiovascular Cariovascular: reports: Irregular heart rate, Exertional dyspnea. denies: Pal pitations, Chest pain, Lightheadedness, Syncope - Respiratory Respiratory: reports: Wheezing, SOB at rest, SOB with exertion - Gastrointestinal Gastrointestinal: denies: Abdominal pain, Abdominal distention, Constipation, Diarrhea, Nausea, Vomiting, Reflux/heartburn - Genitourinary Genitourinary: denies: Dysuria, Frequency, Urgency, Hematuria, Incontinence, Flank pain - Musculoskeletal Musculoskeletal: denies: Muscle pain, Back pain, Muscle aches, Stiffness - Integumentary Integumentary: denies: Rash, Pruritis, Lesions - Neurological Neurological: denies: General weakness, Focal weakness, Headache, Dizziness - Psychiatric Psychiatric: denies: Depression, Anxiety - Endocrine Endocrine: denies: Polyuria, Polydypsia - Hematologic/Lymphatic Hematologic/Lymphatic: denies: Anemia, Bruising, Petechiae Exam - Vital Signs Vital Signs: Vital Signs x48h Temp Pulse Resp BP Pulse Ox 06/15/20 15:30 98 22 139/74 H 98 04/16/21 15:00 36.8 C 98 24 139/79 H 98 06/15/20 14:30 122 H 25 H 102/77 99 06/15/20 14:09 36.8 C 120 H 22 165/146 H 99 06/15/20 13:39 112 H 20 142/102 H 99 06/15/20 13:26 117 H 18 06/15/20 13:05 37.4 C 127 H 22 159/142 H 93 - Physical Exam General Appearance: positive: Alert, Moderate distress Eyes Bilateral: positive: PERRL, EOMI ENT: positive: No signs of dehydration Neck: positive: No JVD, Trachea midline Respiratory: positive: Chest non-tender, No respiratory distress, Breath sounds nml, Wheezes Cardiovascular: positive: Irregularly irregular, Tachycardia Abdomen: positive: Non-tender, No organomegaly, Nml bowel sounds, No distention. negative: Guarding, Rebound Back: positive: Nml inspection Skin: positive: Color nml, No rash, Warm, Dry Extremities: positive: Non-tender, Full ROM, Nml appearance, No pedal edema Neurologic/Psychiatric: positive: Oriented x3, Mood/affect nml Conclusion/Plan - Problem List (1) COPD exacerbation Conclusion/Plan: Patient's PCO2 was 87. Chest x-ray was negative for any gross pulmonary infiltrate. Patient was given a dose of Solu-Medrol 125 mg IV x1 in the ED. Patient was admitted to the ICU because at the time of presentation her heart rate was also in the 120s Solu-Medrol 80 mg 3 times daily ordered. DuoNeb every 3 hours as needed ordered. We will continue patient's supplemental oxygen via nasal cannula. If needed will place patient on the BiPAP. Repeat ABG pending. We will also check ABG in the morning. Patient WBC went normal and COVID-19 test was negative (2) Acute respiratory failure with hypoxia and hypercapnia Conclusion/Plan: Likely secondary to COPD exacerbation. Patient is being treated with supplemental oxygen. Solu-Medrol and DuoNeb ordered. We will also resume patient's home respiratory regimen. (3) A-fib Conclusion/Plan: Patient had a heart rate in the 120s at time of presentation for admission. Consequently she was admitted to the ICU for concern that she might need a drip to control heart rate. However she was given a dose of metoprolol tartrate 75 mg p.o. once in the ED which improved her heart rate to the 90s. We will continue her metoprolol tartrate 75 mg p.o. twice daily which is home dose. She is also on Xarelto 20 mg p.o. daily. Will continue. (4) Congestive heart failure Conclusion/Plan: Not in exacerbation. Patient's BNP was 146. Resume patient's Lasix 20 mg p.o. twice daily. On metoprolol tartrate 75 mg p.o. twice daily. Cardiac diet ordered. (5) HTN (hypertension) Conclusion/Plan: On metoprolol tartrate 25 mg p.o. twice daily. On Lasix 20 mg p.o. twice daily. Qualifiers: Hypertension type: essential hypertension Qualified Code(s): I10 - Essential (primary) hypertension - Lab Results Fish Bones: 06/16/20 04:30 06/16/20 04:30 Core Measures - Anticipated LOS I expect patient to be DC'd or transferred within 96 hours.: Yes - DVT/VTE - Prophylaxis VTE/DVT Device ordered at admit?: Yes VTE/DVT Prophylaxis med ordered at admit?: Yes
--- OUTSIDE RECORDS SUMMARY | 2020-06-15 16:40 | EXTERNAL MEDICAL SUMMARY RPT | Continuity of Care Document ---
:1960 Demographics Phone Unavailable Preferred Language Unknown Marital Status Unknown Yazidism Affiliation Unknown Race Unknown Ethnic Group Unknown Author Organization [place] Address [address] [phone] Phone Social History date description facility [phone]
[2020-06-15] MEDS ORDERED: IPRATROPIUM/ALBUTEROL 3 ML NEB INH PRN (17:00)
[2020-06-15] MEDS: HYDROcod/ACETAM 5/325 MG TABLET PO PRN ×2 (18:01→21:35)
[2020-06-15] MEDS: FUROSEMIDE 20 MG TABLET PO SCH (18:02)
[2020-06-15] MEDS: RIVAROXABAN 10 MG TABLET PO SCH (18:02)
[2020-06-15] MEDS: SODIUM CHLORIDE FLUSH 0.9% 10 ML SYRINGE IVP SCH (18:04)
[2020-06-15 19:25] LABS: ABG PH 7.41 (7.35-7.45)
[2020-06-15 19:26] LABS: ABG BASE EXCESS 16.7 mmol/L (-2.0-3.0); ABG HCO3 44.6 mmol/L (22.0-26.0); ABG OXYGEN SATURATION 92 % (94-98); ABG PO2 66 mmHg (80-100); ALLEN TEST POSITIVE
[2020-06-15 19:29] LABS: ABG PCO2 72 mmHg (34-45); ABG TCO2 46.8 MMOL/L (21.0-29.0)
[2020-06-15] MEDS: BUDESONIDE 0.5 MG/2 ML NEB INH SCH (20:00)
[2020-06-15] MEDS: FORMOTEROL FUMARATE NEB 20 MCG/2 ML INH SCH (20:00)
[2020-06-15] MEDS ORDERED: METOPROLOL TARTRATE 50 MG TABLET PO SCH (21:00)
[2020-06-15] MEDS: NYSTATIN POWDER 15 GM TOP SCH (21:30)
[2020-06-15] MEDS: methylPREDNISolone SUCCINATE 125 MG/2 ML VIAL IVP SCH (21:33)
[2020-06-15] MEDS: METOPROLOL TARTRATE 50 MG TABLET PO SCH (21:34)
[2020-06-15] MEDS: METOPROLOL TARTRATE 25 MG TABLET PO SCH (21:34)
[2020-06-16] MEDS: IPRATROPIUM/ALBUTEROL 3 ML NEB INH PRN ×3 (02:56→14:35)
[2020-06-16] MEDS: HYDROcod/ACETAM 5/325 MG TABLET PO PRN ×4 (03:08→21:35)
[2020-06-16] MEDS: SODIUM CHLORIDE FLUSH 0.9% 10 ML SYRINGE IVP SCH ×3 (03:10→18:12)
[2020-06-16 05:01] LABS: ALLEN TEST POSITIVE
[2020-06-16 05:04] LABS: ABG OXYGEN SATURATION 87 % (94-98); ABG PCO2 73 mmHg (34-45); ABG PO2 53 mmHg (80-100); ABG TCO2 46.2 MMOL/L (21.0-29.0)
[2020-06-16 05:18] LABS: BASOPHILS % (AUTO) 0.2 %; HCT - HEMATOCRIT 37.1 % (37.0-47.0); HGB - HEMOGLOBIN 10.6 g/dL (12.0-16.0); LYMPHOCYTES # (AUTO) 0.5 10^3/uL (1.5-3.5); MEAN CORPUSCULAR HEMOGLOBIN 25.2 pg (27.0-31.0); MEAN CORPUSCULAR HGB CONC 28.6 g/dL (32.0-36.0); MEAN CORPUSCULAR VOLUME 88.1 fL (81.0-99.0); MEAN PLATELET VOLUME 9.6 fL (7.9-10.8); MONOCYTES # (AUTO) 0.1 10^3/uL (0.0-1.0); MONOCYTES % (AUTO) 0.5 %; NEUTROPHILS # (AUTO) 9.9 10^3/uL (1.5-6.6); PLT - PLATELET COUNT 419 10^3/uL (130-450); RED BLOOD COUNT 4.21 10^6/uL (4.20-5.40); RED CELL DISTRIBUTION WIDTH 14.8 % (12.0-15.0); WHITE BLOOD COUNT 10.5 x10^3/uL (4.8-10.8)
[2020-06-16 05:24] LABS: CALCIUM 9.1 mg/dL (8.5-10.3); CREATININE 0.6 mg/dL (0.4-1.0); POTASSIUM 4.3 mmol/L (3.5-5.0)
[2020-06-16] MEDS: FUROSEMIDE 20 MG TABLET PO SCH ×2 (06:45→14:25)
[2020-06-16] MEDS: methylPREDNISolone SUCCINATE 125 MG/2 ML VIAL IVP SCH ×3 (06:45→21:35)
[2020-06-16 07:35] LABS: ABG PCO2 62 mmHg (34-45)
[2020-06-16 07:36] LABS: ABG HCO3 37.3 mmol/L (22.0-26.0); ABG PO2 72 mmHg (80-100); ABG TCO2 39.2 MMOL/L (21.0-29.0)
[2020-06-16 07:37] LABS: ABG BASE EXCESS 10.5 mmol/L (-2.0-3.0); ABG OXYGEN SATURATION 95 % (94-98); ALLEN TEST POSITIVE
[2020-06-16] MEDS: FORMOTEROL FUMARATE NEB 20 MCG/2 ML INH SCH ×2 (07:47→19:29)
[2020-06-16] MEDS: BUDESONIDE 0.5 MG/2 ML NEB INH SCH ×2 (07:47→19:29)
--- NOTE | 2020-06-16 08:16 | PROVIDER PROGRESS NOTE ---
Assessment/Plan - Problem List (1) COPD exacerbation Assessment/Plan: ABG done this morning showed a pH of 7.0, PCO2 62, PO2 72, bicarb 37.3 Patient was on BiPAP overnight. Will resume BiPAP tonight. And recheck ABG in the morning again. Patient's mentation has been intact throughout. Patient's PCO2 normally runs in the 60s. Continue Solu-Medrol 80 mg 3 times daily. DuoNeb every 3 hours as needed. Formoterol and budesonide twice daily Continue supplemental oxygen as needed. Anticipated discharge in 2 days. (2) Acute respiratory failure with hypoxia and hypercapnia Assessment/Plan: ABG done this morning showed a pH of 7.0, PCO2 62, PO2 72, bicarb 37.3 Patient was on BiPAP overnight. Will resume BiPAP tonight. And recheck ABG in the morning again. Patient's mentation has been intact throughout. Patient's PCO2 normally runs in the 60s. Continue Solu-Medrol 80 mg 3 times daily. DuoNeb every 3 hours as needed. Formoterol and budesonide twice daily Continue supplemental oxygen as needed. (3) A-fib Assessment/Plan: On metoprolol tartrate 75 mg p.o. twice daily. On Xarelto 20 mg p.o. daily. (4) Congestive heart failure Assessment/Plan: Not in exacerbation. Lasix 20 mg p.o. twice daily Metoprolol tartrate 25 mg p.o. twice daily Cardiac diet. (5) HTN (hypertension) Qualifiers: Hypertension type: essential hypertension Qualified Code(s): I10 - Essential (primary) hypertension Assessment/Plan: On metoprolol tartrate 25 mg p.o. twice daily. On Lasix 20 mg p.o. twice daily. - Current Meds Current Meds: Current Medications Generic Name Dose Route Start Last Admin Trade Name Freq PRN Reason Stop Dose Admin Hydrocodone Bitart/Acetaminophen 1 tab 06/15/20 17:47 06/16/20 03:08 Hydrocod/Acetam 5/325 Mg Tablet PO 1 tab Q4HR PRN Administration PAIN Albuterol/Ipratropium 3 ml 06/15/20 15:47 06/16/20 07:47 Ipratropium/Albuterol 3 Ml Neb INH 3 ml Q4HR PRN Administration Wheezing Budesonide 0.5 mg 06/15/20 19:00 06/16/20 07:47 Budesonide 0.5 Mg/2 Ml Neb INH 0.5 mg RTBID TESS Administration Formoterol Fumarate 20 mcg 06/15/20 19:00 06/16/20 07:47 Formoterol Fumarate Neb 20 Mcg/2 Ml INH 20 mcg RTBID TESS Administration Furosemide 20 mg 06/15/20 18:00 06/16/20 06:45 Furosemide 20 Mg Tablet PO 20 mg BIDDIURETIC TESS Administration Methylprednisolone Sodium Succinate 80 mg 06/15/20 22:00 06/16/20 06:45 Methylprednisolone Succinate 125 Mg/2 Ml Vial IVP 80 mg TID TESS Administration Metoprolol Tartrate 50 mg 06/15/20 21:00 06/15/20 21:34 Metoprolol Tartrate 50 Mg Tablet PO 50 mg BID TESS Administration Metoprolol Tartrate 25 mg 06/15/20 21:00 06/15/20 21:34 Metoprolol Tartrate 25 Mg Tablet PO 25 mg BID TESS Administration Nystatin 1 applic 06/15/20 21:00 06/15/20 21:30 Nystatin Powder 15 Gm TOP 1 applic BID TESS Administration Rivaroxaban 20 mg 06/15/20 18:00 06/15/20 18:02 Rivaroxaban 10 Mg Tablet PO 20 mg QDDINNER TESS Administration Sodium Chloride 10 ml 06/15/20 17:00 06/16/20 03:10 Sodium Chloride Flush 0.9% 10 Ml Syringe IVP 10 ml 0100,0900,1700 TESS Administration - Lab Result Fish Bone Diagrams: 06/16/20 04:30 06/16/20 04:30 - Additional Planning My Orders: My Active Orders 06/15/20 15:33 Initiate Lung Inflation Protoc [RC] .PROTOCOL Vital Signs [RC] Q2HR Acetaminophen [Tylenol] 650 mg PO Q4HR PRN Ondansetron Inj [Zofran Inj] 4 mg IVP Q6HR PRN Sodium Chloride Flush 0.9% [Normal Saline Flush 0.9%] 10 ml IVP PRN PRN 06/15/20 15:34 Activity Orders [RC] Q2HR Daily Weight [RC] 0600 IO [RC] Q1HR Initiate Bowel Care Protocol [RC] QSHIFT Initiate Flu Vaccine Screening [RC] ONCE Initiate ICU Electrolyte Prot. [RC] .protocol Initiate Line Care Protocol [RC] .protocol Initiate Personal Care Protoco [RC] .protocol Initiate Pneumonia Vaccine Scr [RC] ONCE Code Status [OTHERS] Routine Condition of Patient [OTHERS] Routine DVT Prophylaxis [OTHERS] Routine 06/15/20 15:36 Oxygen Therapy [RC] .PRN Telemetry- [RC] Q4HR 06/15/20 15:37 SCDs [RC] QSHIFT 06/15/20 15:47 Ipratropium/Albuterol [Duoneb] 3 ml INH Q4HR PRN 06/15/20 Dinner Cardiac Diet [DIET] 06/15/20 17:00 Ipratropium/Albuterol [Duoneb] 3 ml INH Q4H PRN Sodium Chloride Flush 0.9% [Normal Saline Flush 0.9%] 10 ml IVP 0100,0900,1700 06/15/20 17:01 Nebulizer/MDI Tx. [RC] .Q4prn Resp Teach Nebulizer/MDI [RC] .ONCE 06/15/20 17:47 HYDROcod/ACETAM 5/325 [[place] 5/325] 1 tab PO Q4HR PRN 06/15/20 18:00 Furosemide [Lasix] 20 mg PO BIDDIURETIC Rivaroxaban [Xarelto] 20 mg PO QDDINNER 06/15/20 19:00 Budesonide [Pulmicort] 0.5 mg INH RTBID Formoterol Fumarate [Perforomist] 20 mcg INH RTBID 06/15/20 19:23 Miscellaenous Nursing Order [RC] Q12H 06/15/20 21:00 Metoprolol Tartrate [Lopressor] 25 mg PO BID Metoprolol Tartrate [Lopressor] 50 mg PO BID Nystatin [Nystop] 1 applic TOP BID 06/15/20 22:00 methylPREDNISolone SUCCINATE [SOLU-Medrol (125MG VIAL)] 80 mg IVP TID 06/16/20 09:00 Aspirin EC [Ecotrin] 81 mg PO DAILY 06/17/20 05:00 BMP - BASIC METABOLIC PANEL [CHEM] DAILYLAB CBC - COMP BLD CT W/AUTO DIFF [HEME] DAILYLAB 06/18/20 05:00 BMP - BASIC METABOLIC PANEL [CHEM] DAILYLAB CBC - COMP BLD CT W/AUTO DIFF [HEME] DAILYLAB 06/19/20 05:00 BMP - BASIC METABOLIC PANEL [CHEM] DAILYLAB CBC - COMP BLD CT W/AUTO DIFF [HEME] DAILYLAB 06/20/20 05:00 BMP - BASIC METABOLIC PANEL [CHEM] DAILYLAB CBC - COMP BLD CT W/AUTO DIFF [HEME] DAILYLAB Subjective - Subjective Patient Reports: Other (Patient resting comfortably in bed. Denies any chest pain, abdominal pain, nausea, vomiting, fever or chills. She still has some wheezing but has air movement this much improved from yesterday. She required BiPAP for period of time overnight due to hypoxia and hypercapnia on ABG.) Objective Vital Signs: Vital Signs - 24 hr 06/15/20 06/15/20 06/15/20 13:05 13:26 13:39 Temperature 37.4 C Heart Rate 127 H 117 H 112 H Heart Rate [ Monitoring electrodes] Respiratory 22 18 20 Rate Blood Pressure 159/142 H 142/102 H Blood Pressure [Left Radial artery] O2 Saturation 93 99 06/15/20 06/15/20 06/15/20 14:09 14:30 15:00 Temperature 36.8 C 36.8 C Heart Rate 120 H 122 H 98 Heart Rate [ Monitoring electrodes] Respiratory 22 25 H 24 Rate Blood Pressure 165/146 H 102/77 139/79 H Blood Pressure [Left Radial artery] O2 Saturation 99 99 98 06/15/20 06/15/20 06/15/20 15:10 15:30 16:00 Temperature 36.8 C Heart Rate 97 98 97 Heart Rate [ Monitoring electrodes] Respiratory 20 22 22 Rate Blood Pressure 139/74 H 150/88 H Blood Pressure [Left Radial artery] O2 Saturation 98 97 06/15/20 06/15/20 06/15/20 16:54 18:29 19:00 Temperature 37.5 C Heart Rate Heart Rate [ 91 84 91 Monitoring electrodes] Respiratory 26 H 18 20 Rate Blood Pressure Blood Pressure 142/94 H 133/82 H 119/75 [Left Radial artery] O2 Saturation 93 92 94 06/15/20 06/15/20 06/15/20 21:00 21:34 23:00 Temperature Heart Rate Heart Rate [ 87 67 Monitoring electrodes] Respiratory 17 16 Rate Blood Pressure 105/65 Blood Pressure 105/65 109/59 L [Left Radial artery] O2 Saturation 92 94 06/16/20 06/16/20 06/16/20 01:00 03:00 05:00 Temperature 36.8 C Heart Rate 80 Heart Rate [ 69 80 75 Monitoring electrodes] Respiratory 15 16 14 Rate Blood Pressure Blood Pressure 103/54 L 107/79 126/82 H [Left Radial artery] O2 Saturation 94 91 L 89 L 06/16/20 06/16/20 06/16/20 05:36 07:00 07:48 Temperature Heart Rate 65 74 Heart Rate [ 73 Monitoring electrodes] Respiratory 13 16 Rate Blood Pressure Blood Pressure 132/85 H [Left Radial artery] O2 Saturation 96 06/16/20 08:00 Temperature 36.6 C Heart Rate Heart Rate [ 78 Monitoring electrodes] Respiratory 14 Rate Blood Pressure Blood Pressure 145/77 H [Left Radial artery] O2 Saturation 93 Oxygen O2 Source Nasal cannula Oxygen Flow Rate 4 I&O (Last 24 Hrs): Intake and Output Totals x24h 06/14/20 06/15/20 06/16/20 23:59 23:59 23:59 Intake Total 260 360 Output Total 550 150 Balance -290 210 General: Alert, Oriented x3, Cooperative, Mild distress HEENT: PERRLA, EOMI Neck: Supple, No JVD Neuro: Alert, Non Focal, Oriented Times 3 Cardiovascular: Other (irregularly irregular) Respiratory: Chest non-tender, Wheezes (mild), Other (improved air movement) Abdomen: Normal bowel sounds, Soft, No tenderness, Other (obese abdomen) Extremities: No clubbing, No cyanosis, No edema Comments/Notes: intrigo/ candidal rash - Results Results: Laboratory Results WBC 10.5 x10^3/uL (4.8-10.8) 06/16/20 04:30 RBC 4.21 10^6/uL (4.20-5.40) 06/16/20 04:30 Hgb 10.6 g/dL (12.0-16.0) L 06/16/20 04:30 Hct 37.1 % (37.0-47.0) 06/16/20 04:30 MCV 88.1 fL (81.0-99.0) 06/16/20 04:30 MCH 25.2 pg (27.0-31.0) L 06/16/20 04:30 MCHC 28.6 g/dL (32.0-36.0) L 06/16/20 04:30 RDW 14.8 % (12.0-15.0) 06/16/20 04:30 Plt Count 419 10^3/uL (130-450) 06/16/20 04:30 MPV 9.6 fL (7.9-10.8) 06/16/20 04:30 Neut # (Auto) 9.9 10^3/uL (1.5-6.6) H 06/16/20 04:30 Lymph # (Auto) 0.5 10^3/uL (1.5-3.5) L 06/16/20 04:30 [place] # (Auto) 0.1 10^3/uL (0.0-1.0) 06/16/20 04:30 Eos # (Auto) 0.0 10^3/uL (0.0-0.7) 06/16/20 04:30 Baso # (Auto) 0.0 10^3/uL (0.0-0.1) 06/16/20 04:30 Absolute Nucleated RBC 0.00 x10^3/uL 06/16/20 04:30 Nucleated RBC % 0.0 /100WBC 06/16/20 04:30 Bld Gas Analysis Time 0731 06/16/20 07:20 Sample Site RIGHT RADIAL 06/16/20 07:20 ABG pH 7.40 (7.35-7.45) 06/16/20 07:20 ABG pCO2 62 mmHg (34-45) H* 06/16/20 07:20 ABG pO2 72 mmHg (80-100) L 06/16/20 07:20 ABG HCO3 37.3 mmol/L (22.0-26.0) H 06/16/20 07:20 ABG Total CO2 39.2 MMOL/L (21.0-29.0) H* 06/16/20 07:20 ABG O2 Saturation 95 % (94-98) 06/16/20 07:20 ABG Base Excess 10.5 mmol/L (-2.0-3.0) H 06/16/20 07:20 Jorge Test POSITIVE 06/16/20 07:20 VBG pH 7.353 (7.31-7.41) 06/15/20 14:42 VBG pCO2 87.0 mmHg (41-51) H 06/15/20 14:42 VBG pO2 27.6 mmHg (25-47) 06/15/20 14:42 VBG HCO3 47.3 mmol/L (23-28) H 06/15/20 14:42 VBG Total CO2 49.9 mmol/L (24-29) H 06/15/20 14:42 VBG O2 Saturation 53.0 % (60-80) L 06/15/20 14:42 VBG Base Excess 17.8 mmol/L (-2 - +2) H 06/15/20 14:42 O2 Delivery Device BiPAP 06/16/20 07:20 FiO2 32.00 06/16/20 07:20 EPAP 6 cmH2O 06/16/20 07:20 IPAP 12 cmH2O 06/16/20 07:20 Sodium 138 mmol/L (135-145) 06/16/20 04:30 Potassium 4.3 mmol/L (3.5-5.0) 06/16/20 04:30 Chloride 89 mmol/L (101-111) L 06/16/20 04:30 Carbon Dioxide 39 mmol/L (21-32) H* 06/16/20 04:30 Anion Gap 10.0 (6-13) 06/16/20 04:30 BUN 12 mg/dL (6-20) 06/16/20 04:30 Creatinine 0.6 mg/dL (0.4-1.0) 06/16/20 04:30 Estimated GFR (MDRD) 102 (>89) 06/16/20 04:30 Glucose 178 mg/dL (70-100) H 06/16/20 04:30 Calcium 9.1 mg/dL (8.5-10.3) 06/16/20 04:30 Total Bilirubin 0.6 mg/dL (0.2-1.0) 06/15/20 13:30 AST 15 IU/L (10-42) 06/15/20 13:30 ALT 16 IU/L (10-60) 06/15/20 13:30 Alkaline Phosphatase 66 IU/L (42-121) 06/15/20 13:30 Troponin I High Sens 6.4 ng/L (2.3-14.8) 06/15/20 13:30 B-Natriuretic Peptide 146 pg/mL (5-100) H 06/15/20 13:30 Total Protein 7.4 g/dL (6.7-8.2) 06/15/20 13:30 Albumin 3.6 g/dL (3.2-5.5) 06/15/20 13:30 Globulin 3.8 g/dL (2.1-4.2) 06/15/20 13:30 Albumin/Globulin Ratio 0.9 (1.0-2.2) L 06/15/20 13:30 Lipase 20 U/L (22-51) L 06/15/20 13:30 Nasal Adenovirus (PCR) NOT DETECTED 06/15/20 13:37 Nasal B. parapertussis DNA (PCR) NOT DETECTED 06/15/20 13:37 Nasal Coronavir 229E PCR NOT DETECTED 06/15/20 13:37 Nasal Coronavir HKU1 PCR NOT DETECTED 06/15/20 13:37 Nasal Coronavir NL63 PCR NOT DETECTED 06/15/20 13:37 Nasal Coronavir OC43 PCR NOT DETECTED 06/15/20 13:37 Nasal Enterovir/Rhinovir PCR NOT DETECTED 06/15/20 13:37 Nasal Influenza B PCR NOT DETECTED 06/15/20 13:37 Nasal Influenza A PCR NOT DETECTED 06/15/20 13:37 Nasal Parainfluen 1 PCR NOT DETECTED 06/15/20 13:37 Nasal Parainfluen 2 PCR NOT DETECTED 06/15/20 13:37 Nasal Parainfluen 3 PCR NOT DETECTED 06/15/20 13:37 Nasal Parainfluen 4 PCR NOT DETECTED 06/15/20 13:37 Nasal RSV (PCR) NOT DETECTED 06/15/20 13:37 Nasal Screen MRSA (PCR) NEGATIVE (NEGATIVE) 06/15/20 17:45 Nasal B.pertussis DNA PCR NOT DETECTED 06/15/20 13:37 Nasal C.pneumoniae (PCR) NOT DETECTED 06/15/20 13:37 Larry Human Metapneumo PCR NOT DETECTED 06/15/20 13:37 Nasal M.pneumoniae (PCR) NOT DETECTED 06/15/20 13:37 Nasal SARS-CoV-2 (PCR) NOT DETECTED 06/15/20 13:37 - Procedures Procedures: Procedures INSERTION OF ENDOTRACHEAL AIRWAY INTO TRACHEA, VIA OPENING (04/09/16) RESPIRATORY VENTILATION, GREATER THAN 96 CONSECUTIVE HOURS (04/09/16) ABX Reporting Has patient been on IV antibiotics over the past 48 hours?: No
[2020-06-16] MEDS: ASPIRIN EC 81 MG TABLET PO SCH (08:46)
[2020-06-16] MEDS: METOPROLOL TARTRATE 50 MG TABLET PO SCH ×2 (08:49→21:36)
[2020-06-16] MEDS: METOPROLOL TARTRATE 25 MG TABLET PO SCH ×2 (08:49→21:35)
[2020-06-16] MEDS: NYSTATIN POWDER 15 GM TOP SCH ×2 (08:49→21:35)
[2020-06-16] MEDS: polyethylene glycoL 3350 17 GM PACKET PO SCH (09:12)
[2020-06-16] MEDS: ONDANSETRON 4 MG/2 ML VIAL IVP PRN ×2 (12:37→19:45)
[2020-06-16] MEDS: SODIUM CHLORIDE FLUSH 0.9% 10 ML SYRINGE IVP PRN ×4 (12:40→21:39)
--- NOTE | 2020-06-16 13:51 | PHARMACY PROGRESS NOTE ---
- Best Possible Medication History Admit Date and Time: 06/15/20 1534 Processed by: Pharmacy Medication History completed: Yes Patient Interview: Completed Secondary Source(s): Physician records, Pharmacy records As the person ultimately responsible for medication therapy, providers are able to order a medication from an existing home medication list in [facility] via the "Reconcile Routine" prior to Confirmation of that medication by passport support manager. Such practice is discouraged except when the physician, in their clinical judgment, deems that a medical need exists for a medication without regard to previous use.
[2020-06-16] MEDS: RIVAROXABAN 10 MG TABLET PO SCH (17:42)
[2020-06-16] MEDS ORDERED: SIMETHICONE 40 MG/0.6 ML 30 ML BOTTLE PO PRN (18:34)
[2020-06-17] MEDS ORDERED: SIMETHICONE CHEW 80 MG TABLET PO PRN (03:09)
[2020-06-17] MEDS: CALCIUM CARBONATE CHEW 500 MG TABLET PO PRN ×2 (03:27→21:33)
[2020-06-17] MEDS: SODIUM CHLORIDE FLUSH 0.9% 10 ML SYRINGE IVP SCH ×3 (03:27→17:06)
[2020-06-17] MEDS: HYDROcod/ACETAM 5/325 MG TABLET PO PRN ×3 (03:29→22:14)
[2020-06-17 05:24] LABS: BASOPHILS % (AUTO) 0.1 %; HCT - HEMATOCRIT 37.2 % (37.0-47.0); HGB - HEMOGLOBIN 10.9 g/dL (12.0-16.0); LYMPHOCYTES # (AUTO) 0.6 10^3/uL (1.5-3.5); LYMPHOCYTES % (AUTO) 4.1 %; MEAN CORPUSCULAR HEMOGLOBIN 25.5 pg (27.0-31.0); MEAN CORPUSCULAR HGB CONC 29.3 g/dL (32.0-36.0); MEAN CORPUSCULAR VOLUME 87.1 fL (81.0-99.0); MEAN PLATELET VOLUME 9.8 fL (7.9-10.8); MONOCYTES # (AUTO) 0.3 10^3/uL (0.0-1.0); MONOCYTES % (AUTO) 1.6 %; NEUTROPHILS # (AUTO) 14.3 10^3/uL (1.5-6.6); NEUTROPHILS % (AUTO) 93.7 %; PLT - PLATELET COUNT 458 10^3/uL (130-450); RED BLOOD COUNT 4.27 10^6/uL (4.20-5.40); RED CELL DISTRIBUTION WIDTH 15.1 % (12.0-15.0); WHITE BLOOD COUNT 15.3 x10^3/uL (4.8-10.8)
[2020-06-17 05:29] LABS: CREATININE 0.6 mg/dL (0.4-1.0); POTASSIUM 4.1 mmol/L (3.5-5.0)
[2020-06-17] MEDS: methylPREDNISolone SUCCINATE 125 MG/2 ML VIAL IVP SCH ×3 (06:30→22:14)
[2020-06-17] MEDS: FUROSEMIDE 20 MG TABLET PO SCH ×2 (06:30→14:04)
[2020-06-17] MEDS: ONDANSETRON 4 MG/2 ML VIAL IVP PRN ×2 (06:54→18:34)
[2020-06-17] MEDS: IPRATROPIUM/ALBUTEROL 3 ML NEB INH PRN ×2 (07:10→13:21)
[2020-06-17] MEDS: BUDESONIDE 0.5 MG/2 ML NEB INH SCH ×2 (07:10→21:16)
[2020-06-17] MEDS: FORMOTEROL FUMARATE NEB 20 MCG/2 ML INH SCH ×2 (07:11→21:16)
--- NOTE | 2020-06-17 07:57 | PROVIDER PROGRESS NOTE ---
Assessment/Plan - Problem List (1) COPD exacerbation Assessment/Plan: We will continue BiPAP at night. With exertion patient's oxygen saturation drops to the 70s despite 3 L of oxygen baseline. Continue Solu-Medrol 80 mg 3 times daily. DuoNeb every 3 hours as needed. Formoterol budesonide twice daily. Continue supplemental oxygen. Anticipate discharge tomorrow (2) Acute respiratory failure with hypoxia and hypercapnia Assessment/Plan: We will continue BiPAP at night. With exertion patient's oxygen saturation drops to the 70s despite 3 L of oxygen baseline. Continue Solu-Medrol 80 mg 3 times daily. DuoNeb every 3 hours as needed. Formoterol budesonide twice daily. Continue supplemental oxygen. (3) A-fib Assessment/Plan: On metoprolol tartrate 75 mg p.o. twice daily. On Xarelto 20 mg p.o. daily. (4) Congestive heart failure Assessment/Plan: Not in exacerbation. Lasix 20 mg p.o. twice daily Metoprolol tartrate 25 mg p.o. twice daily Cardiac diet. (5) HTN (hypertension) Qualifiers: Hypertension type: essential hypertension Qualified Code(s): I10 - Essential (primary) hypertension Assessment/Plan: On metoprolol tartrate 25 mg p.o. twice daily. On Lasix 20 mg p.o. twice daily. - Current Meds Current Meds: Current Medications Generic Name Dose Route Start Last Admin Trade Name Freq PRN Reason Stop Dose Admin Hydrocodone Bitart/Acetaminophen 1 tab 06/15/20 17:47 06/17/20 03:29 Hydrocod/Acetam 5/325 Mg Tablet PO 1 tab Q4HR PRN Administration PAIN Albuterol/Ipratropium 3 ml 06/15/20 15:47 06/17/20 07:10 Ipratropium/Albuterol 3 Ml Neb INH 3 ml Q4HR PRN Administration Wheezing Aspirin 81 mg 06/16/20 09:00 06/16/20 08:46 Aspirin Ec 81 Mg Tablet PO 81 mg DAILY TESS Administration Budesonide 0.5 mg 06/15/20 19:00 06/17/20 07:10 Budesonide 0.5 Mg/2 Ml Neb INH 0.5 mg RTBID TESS Administration Calcium Carbonate/Glycine 500 mg 06/16/20 18:33 06/17/20 03:27 Calcium Carbonate Chew 500 Mg Tablet PO 500 mg TID PRN Administration Heartburn Formoterol Fumarate 20 mcg 06/15/20 19:00 06/17/20 07:11 Formoterol Fumarate Neb 20 Mcg/2 Ml INH 20 mcg RTBID TESS Administration Furosemide 20 mg 06/15/20 18:00 06/17/20 06:30 Furosemide 20 Mg Tablet PO 20 mg BIDDIURETIC TESS Administration Methylprednisolone Sodium Succinate 80 mg 06/15/20 22:00 06/17/20 06:30 Methylprednisolone Succinate 125 Mg/2 Ml Vial IVP 80 mg TID TESS Administration Metoprolol Tartrate 50 mg 06/15/20 21:00 06/16/20 21:36 Metoprolol Tartrate 50 Mg Tablet PO 50 mg BID TESS Administration Metoprolol Tartrate 25 mg 06/15/20 21:00 06/16/20 21:35 Metoprolol Tartrate 25 Mg Tablet PO 25 mg BID TESS Administration Nystatin 1 applic 06/15/20 21:00 06/16/20 21:35 Nystatin Powder 15 Gm TOP 1 applic BID TESS Administration Ondansetron HCl 4 mg 06/15/20 15:33 06/17/20 06:54 Ondansetron 4 Mg/2 Ml Vial IVP 4 mg Q6HR PRN Administration Nausea / Vomiting Polyethylene Glycol 17 gm 06/16/20 09:00 06/16/20 09:12 Polyethylene Glycol 3350 17 Gm Packet PO 17 gm DAILY TESS Administration Rivaroxaban 20 mg 06/15/20 18:00 06/16/20 17:42 Rivaroxaban 10 Mg Tablet PO 20 mg QDDINNER TESS Administration Simethicone 80 mg 06/17/20 03:09 06/17/20 03:27 Simethicone Chew 80 Mg Tablet PO 80 mg Q6H PRN Administration GAS Sodium Chloride 10 ml 06/15/20 17:00 06/17/20 03:27 Sodium Chloride Flush 0.9% 10 Ml Syringe IVP 10 ml 0100,0900,1700 TESS Administration Sodium Chloride 10 ml 06/15/20 15:33 06/16/20 21:39 Sodium Chloride Flush 0.9% 10 Ml Syringe IVP 10 ml PRN PRN Administration NEEDED PER PROVIDER ORDERS - Lab Result Fish Bone Diagrams: 06/17/20 04:15 06/17/20 04:15 - Additional Planning My Orders: My Active Orders 06/16/20 09:00 Aspirin EC [Ecotrin] 81 mg PO DAILY polyethylene glycoL 3350 [Miralax] 17 gm PO DAILY 06/16/20 11:39 RT [BIPAP/CPAP - RT] [RC] .q2 06/16/20 18:33 Calcium Carbonate [Tums] 500 mg PO TID PRN 06/17/20 03:09 Simethicone [Mylicon] 80 mg PO Q6H PRN 06/17/20 07:55 RT - Obtain Arterial Specimen [RC] .ONCE ABG - ARTERIAL BLOOD GAS [BG] Stat 06/17/20 07:56 Chest 1 View X-Ray [XR] Stat 06/18/20 05:00 BMP - BASIC METABOLIC PANEL [CHEM] DAILYLAB CBC - COMP BLD CT W/AUTO DIFF [HEME] DAILYLAB 06/19/20 05:00 BMP - BASIC METABOLIC PANEL [CHEM] DAILYLAB CBC - COMP BLD CT W/AUTO DIFF [HEME] DAILYLAB 06/20/20 05:00 BMP - BASIC METABOLIC PANEL [CHEM] DAILYLAB CBC - COMP BLD CT W/AUTO DIFF [HEME] DAILYLAB Subjective - Subjective Patient Reports: Other (She was resting comfortably in the bedside chair at time of visit. She denied chest pain, dyspnea, abdominal pain, nausea, vomiting, fever or chills. With exertion her oxygenation dropped into the 70s on 3 L. She has mild wheezing which appears to be baseline.) Objective Vital Signs: Vital Signs - 24 hr 06/16/20 06/16/20 06/16/20 08:00 08:49 09:00 Temperature 36.6 C Heart Rate Heart Rate [ 78 96 Monitoring electrodes] Respiratory 14 17 Rate Blood Pressure 145/77 H Blood Pressure 145/77 H 126/60 [Left Radial artery] Blood Pressure [Right Radial artery] O2 Saturation 93 91 L 06/16/20 06/16/20 06/16/20 09:21 10:09 12:01 Temperature 36.7 C Heart Rate 90 Heart Rate [ 72 75 Monitoring electrodes] Respiratory 15 18 Rate Blood Pressure Blood Pressure 129/83 H 130/82 H [Left Radial artery] Blood Pressure [Right Radial artery] O2 Saturation 94 95 06/16/20 06/16/20 06/16/20 14:19 14:35 14:38 Temperature 36.7 C Heart Rate 76 76 Heart Rate [ 95 Monitoring electrodes] Respiratory 19 18 18 Rate Blood Pressure Blood Pressure 148/81 H [Left Radial artery] Blood Pressure [Right Radial artery] O2 Saturation 92 92 06/16/20 06/16/20 06/16/20 15:14 15:17 17:00 Temperature Heart Rate 87 Heart Rate [ 71 79 Monitoring electrodes] Respiratory 13 15 Rate Blood Pressure Blood Pressure 116/62 119/55 L [Left Radial artery] Blood Pressure [Right Radial artery] O2 Saturation 98 94 06/16/20 06/16/20 06/16/20 18:32 21:00 21:35 Temperature 36.8 C Heart Rate Heart Rate [ 89 78 Monitoring electrodes] Respiratory 14 13 Rate Blood Pressure 124/70 Blood Pressure [Left Radial artery] Blood Pressure 124/71 124/70 [Right Radial artery] O2 Saturation 92 95 06/16/20 06/16/20 06/16/20 21:36 22:00 23:00 Temperature Heart Rate 65 Heart Rate [ 67 Monitoring electrodes] Respiratory 17 Rate Blood Pressure 124/70 Blood Pressure [Left Radial artery] Blood Pressure 121/64 [Right Radial artery] O2 Saturation 97 06/17/20 06/17/20 06/17/20 01:00 01:07 03:00 Temperature 36.7 C Heart Rate 73 Heart Rate [ 65 68 Monitoring electrodes] Respiratory 14 13 Rate Blood Pressure Blood Pressure [Left Radial artery] Blood Pressure 111/67 125/83 H [Right Radial artery] O2 Saturation 96 96 06/17/20 06/17/20 06/17/20 04:30 05:00 07:00 Temperature Heart Rate 72 Heart Rate [ 73 78 Monitoring electrodes] Respiratory 12 11 L Rate Blood Pressure Blood Pressure [Left Radial artery] Blood Pressure 125/74 139/91 H [Right Radial artery] O2 Saturation 97 95 06/17/20 07:13 Temperature Heart Rate 90 Heart Rate [ Monitoring electrodes] Respiratory 18 Rate Blood Pressure Blood Pressure [Left Radial artery] Blood Pressure [Right Radial artery] O2 Saturation Oxygen O2 Source Nasal cannula Oxygen Flow Rate 4 I&O (Last 24 Hrs): Intake and Output Totals x24h 06/15/20 06/16/20 06/17/20 23:59 23:59 23:59 Intake Total 260 760 350 Output Total 550 1375 600 Balance -290 -615 -250 General: Alert, Oriented x3, Cooperative, No acute distress HEENT: PERRLA, EOMI Neck: Supple, No JVD Neuro: Alert, Non Focal, Oriented Times 3 Cardiovascular: Other (Irregularly irregular) Respiratory: Chest non-tender, No respiratory distress, Wheezes (mild) Abdomen: Normal bowel sounds, Soft, No tenderness, Other Extremities: No clubbing, No cyanosis, No edema Comments/Notes: candidal rash - Results Results: Laboratory Results WBC 15.3 x10^3/uL (4.8-10.8) H 06/17/20 04:15 RBC 4.27 10^6/uL (4.20-5.40) 06/17/20 04:15 Hgb 10.9 g/dL (12.0-16.0) L 06/17/20 04:15 Hct 37.2 % (37.0-47.0) 06/17/20 04:15 MCV 87.1 fL (81.0-99.0) 06/17/20 04:15 MCH 25.5 pg (27.0-31.0) L 06/17/20 04:15 MCHC 29.3 g/dL (32.0-36.0) L 06/17/20 04:15 RDW 15.1 % (12.0-15.0) H 06/17/20 04:15 Plt Count 458 10^3/uL (130-450) H 06/17/20 04:15 MPV 9.8 fL (7.9-10.8) 06/17/20 04:15 Neut # (Auto) 14.3 10^3/uL (1.5-6.6) H 06/17/20 04:15 Lymph # (Auto) 0.6 10^3/uL (1.5-3.5) L 06/17/20 04:15 Morrison # (Auto) 0.3 10^3/uL (0.0-1.0) 06/17/20 04:15 Eos # (Auto) 0.0 10^3/uL (0.0-0.7) 06/17/20 04:15 Baso # (Auto) 0.0 10^3/uL (0.0-0.1) 06/17/20 04:15 Absolute Nucleated RBC 0.00 x10^3/uL 06/17/20 04:15 Nucleated RBC % 0.0 /100WBC 06/17/20 04:15 Bld Gas Analysis Time 0731 06/16/20 07:20 Sample Site RIGHT RADIAL 06/16/20 07:20 ABG pH 7.40 (7.35-7.45) 06/16/20 07:20 ABG pCO2 62 mmHg (34-45) H* 06/16/20 07:20 ABG pO2 72 mmHg (80-100) L 06/16/20 07:20 ABG HCO3 37.3 mmol/L (22.0-26.0) H 06/16/20 07:20 ABG Total CO2 39.2 MMOL/L (21.0-29.0) H* 06/16/20 07:20 ABG O2 Saturation 95 % (94-98) 06/16/20 07:20 ABG Base Excess 10.5 mmol/L (-2.0-3.0) H 06/16/20 07:20 Jorge Test POSITIVE 06/16/20 07:20 VBG pH 7.353 (7.31-7.41) 06/15/20 14:42 VBG pCO2 87.0 mmHg (41-51) H 06/15/20 14:42 VBG pO2 27.6 mmHg (25-47) 06/15/20 14:42 VBG HCO3 47.3 mmol/L (23-28) H 06/15/20 14:42 VBG Total CO2 49.9 mmol/L (24-29) H 06/15/20 14:42 VBG O2 Saturation 53.0 % (60-80) L 06/15/20 14:42 VBG Base Excess 17.8 mmol/L (-2 - +2) H 06/15/20 14:42 O2 Delivery Device BiPAP 06/16/20 07:20 FiO2 32.00 06/16/20 07:20 EPAP 6 cmH2O 06/16/20 07:20 IPAP 12 cmH2O 06/16/20 07:20 Sodium 138 mmol/L (135-145) 06/17/20 04:15 Potassium 4.1 mmol/L (3.5-5.0) 06/17/20 04:15 Chloride 89 mmol/L (101-111) L 06/17/20 04:15 Carbon Dioxide 40 mmol/L (21-32) H* 06/17/20 04:15 Anion Gap 9.0 (6-13) 06/17/20 04:15 BUN 21 mg/dL (6-20) H 06/17/20 04:15 Creatinine 0.6 mg/dL (0.4-1.0) 06/17/20 04:15 Estimated GFR (MDRD) 102 (>89) 06/17/20 04:15 Glucose 157 mg/dL (70-100) H 06/17/20 04:15 Calcium 9.0 mg/dL (8.5-10.3) 06/17/20 04:15 Total Bilirubin 0.6 mg/dL (0.2-1.0) 06/15/20 13:30 AST 15 IU/L (10-42) 06/15/20 13:30 ALT 16 IU/L (10-60) 06/15/20 13:30 Alkaline Phosphatase 66 IU/L (42-121) 06/15/20 13:30 Troponin I High Sens 6.4 ng/L (2.3-14.8) 06/15/20 13:30 B-Natriuretic Peptide 146 pg/mL (5-100) H 06/15/20 13:30 Total Protein 7.4 g/dL (6.7-8.2) 06/15/20 13:30 Albumin 3.6 g/dL (3.2-5.5) 06/15/20 13:30 Globulin 3.8 g/dL (2.1-4.2) 06/15/20 13:30 Albumin/Globulin Ratio 0.9 (1.0-2.2) L 06/15/20 13:30 Lipase 20 U/L (22-51) L 06/15/20 13:30 Nasal Adenovirus (PCR) NOT DETECTED 06/15/20 13:37 Nasal B. parapertussis DNA (PCR) NOT DETECTED 06/15/20 13:37 Nasal Coronavir 229E PCR NOT DETECTED 06/15/20 13:37 Nasal Coronavir HKU1 PCR NOT DETECTED 06/15/20 13:37 Nasal Coronavir NL63 PCR NOT DETECTED 06/15/20 13:37 Nasal Coronavir OC43 PCR NOT DETECTED 06/15/20 13:37 Nasal Enterovir/Rhinovir PCR NOT DETECTED 06/15/20 13:37 Nasal Influenza B PCR NOT DETECTED 06/15/20 13:37 Nasal Influenza A PCR NOT DETECTED 06/15/20 13:37 Nasal Parainfluen 1 PCR NOT DETECTED 06/15/20 13:37 Nasal Parainfluen 2 PCR NOT DETECTED 06/15/20 13:37 Nasal Parainfluen 3 PCR NOT DETECTED 06/15/20 13:37 Nasal Parainfluen 4 PCR NOT DETECTED 06/15/20 13:37 Nasal RSV (PCR) NOT DETECTED 06/15/20 13:37 Nasal Screen MRSA (PCR) NEGATIVE (NEGATIVE) 06/15/20 17:45 Nasal B.pertussis DNA PCR NOT DETECTED 06/15/20 13:37 Nasal C.pneumoniae (PCR) NOT DETECTED 06/15/20 13:37 Larry Human Metapneumo PCR NOT DETECTED 06/15/20 13:37 Nasal M.pneumoniae (PCR) NOT DETECTED 06/15/20 13:37 Nasal SARS-CoV-2 (PCR) NOT DETECTED 06/15/20 13:37 - Procedures Procedures: Procedures INSERTION OF ENDOTRACHEAL AIRWAY INTO TRACHEA, VIA OPENING (04/09/16) RESPIRATORY VENTILATION, GREATER THAN 96 CONSECUTIVE HOURS (04/09/16) ABX Reporting Has patient been on IV antibiotics over the past 48 hours?: No
[2020-06-17] MEDS: METOPROLOL TARTRATE 50 MG TABLET PO SCH ×2 (08:19→21:06)
[2020-06-17] MEDS: ASPIRIN EC 81 MG TABLET PO SCH (08:19)
[2020-06-17] MEDS: METOPROLOL TARTRATE 25 MG TABLET PO SCH ×2 (08:21→21:05)
[2020-06-17] MEDS: polyethylene glycoL 3350 17 GM PACKET PO SCH (08:22)
--- NOTE | 2020-06-17 08:31 | XRAY Report ---
PROCEDURE: Chest 1 View X-Ray INDICATIONS: dyspnea, hypoxia, leukocytosis TECHNIQUE: One view of the chest was acquired. COMPARISON: 06/15/2020 and 04/16/2028 FINDINGS: Surgical changes and devices: None. Lungs and pleura: No significant change from recent comparison without focal consolidation, pneumotho rax, or pleural effusion. Mediastinum: Mediastinal contours appear normal. Heart size is enlarged. Bones and chest wall: No suspicious bony lesions. Overlying soft tissues appear unremarkable. IMPRESSION: Stable cardiomegaly. No focal consolidation. Reviewed by: Garth Marie DO on 06/17/2020 7:30 AM [facility] Approved by: Garth Marie DO on 06/17/2020 7:30 AM [facility] Station ID: [id number]
[2020-06-17] MEDS: NYSTATIN POWDER 15 GM TOP SCH ×2 (09:53→21:05)
[2020-06-17] MEDS: RIVAROXABAN 10 MG TABLET PO SCH (17:06)
[2020-06-17] MEDS: SODIUM CHLORIDE FLUSH 0.9% 10 ML SYRINGE IVP PRN (22:15)
[2020-06-18] MEDS: SODIUM CHLORIDE FLUSH 0.9% 10 ML SYRINGE IVP SCH ×2 (00:15→08:50)
[2020-06-18] MEDS: HYDROcod/ACETAM 5/325 MG TABLET PO PRN ×2 (04:07→14:45)
[2020-06-18 04:51] LABS: BASOPHILS % (AUTO) 0.1 %; HCT - HEMATOCRIT 37.4 % (37.0-47.0); HGB - HEMOGLOBIN 10.9 g/dL (12.0-16.0); LYMPHOCYTES # (AUTO) 0.7 10^3/uL (1.5-3.5); LYMPHOCYTES % (AUTO) 5.1 %; MEAN CORPUSCULAR HEMOGLOBIN 25.3 pg (27.0-31.0); MEAN CORPUSCULAR HGB CONC 29.1 g/dL (32.0-36.0); MEAN PLATELET VOLUME 9.5 fL (7.9-10.8); MONOCYTES # (AUTO) 0.3 10^3/uL (0.0-1.0); MONOCYTES % (AUTO) 1.9 %; NEUTROPHILS # (AUTO) 12.3 10^3/uL (1.5-6.6); NEUTROPHILS % (AUTO) 92.4 %; PLT - PLATELET COUNT 431 10^3/uL (130-450); RED CELL DISTRIBUTION WIDTH 15.2 % (12.0-15.0); WHITE BLOOD COUNT 13.3 x10^3/uL (4.8-10.8)
[2020-06-18 05:07] LABS: CREATININE 0.6 mg/dL (0.4-1.0)
[2020-06-18 05:50] LABS: MAGNESIUM 1.8 mg/dL (1.7-2.8); PHOSPHORUS 4.5 mg/dL (2.5-4.6)
[2020-06-18] MEDS: methylPREDNISolone SUCCINATE 125 MG/2 ML VIAL IVP SCH ×2 (06:36→14:32)
[2020-06-18] MEDS: FUROSEMIDE 20 MG TABLET PO SCH ×2 (06:36→14:32)
[2020-06-18] MEDS: BUDESONIDE 0.5 MG/2 ML NEB INH SCH (07:59)
[2020-06-18] MEDS: IPRATROPIUM/ALBUTEROL 3 ML NEB INH PRN (07:59)
[2020-06-18] MEDS: FORMOTEROL FUMARATE NEB 20 MCG/2 ML INH SCH (07:59)
[2020-06-18] MEDS: METOPROLOL TARTRATE 50 MG TABLET PO SCH (08:47)
[2020-06-18] MEDS: METOPROLOL TARTRATE 25 MG TABLET PO SCH (08:47)
[2020-06-18] MEDS: ASPIRIN EC 81 MG TABLET PO SCH (08:47)
[2020-06-18] MEDS: polyethylene glycoL 3350 17 GM PACKET PO SCH (08:49)
[2020-06-18] MEDS: NYSTATIN POWDER 15 GM TOP SCH (08:50)
[2020-06-18 09:15] LABS: ABG BASE EXCESS 14.5 mmol/L (-2.0-3.0); ABG HCO3 41.8 mmol/L (22.0-26.0); ABG OXYGEN SATURATION 89 % (94-98); ABG PH 7.42 (7.35-7.45); ABG PO2 56 mmHg (80-100); ALLEN TEST POSITIVE
[2020-06-18 09:20] LABS: ABG PCO2 66 mmHg (34-45); ABG TCO2 43.8 MMOL/L (21.0-29.0)
--- NOTE | 2020-06-18 13:52 | PROVIDER PROGRESS NOTE ---
Assessment/Plan - Problem List (5) HTN (hypertension) Qualifiers: Hypertension type: essential hypertension Qualified Code(s): I10 - Essential (primary) hypertension - Current Meds Current Meds: Current Medications Generic Name Dose Route Start Last Admin Trade Name Freq PRN Reason Stop Dose Admin Hydrocodone Bitart/Acetaminophen 1 tab 06/15/20 17:47 06/18/20 04:07 Hydrocod/Acetam 5/325 Mg Tablet PO 1 tab Q4HR PRN Administration PAIN Albuterol/Ipratropium 3 ml 06/15/20 15:47 06/18/20 07:59 Ipratropium/Albuterol 3 Ml Neb INH 3 ml Q4HR PRN Administration Wheezing Aspirin 81 mg 06/16/20 09:00 06/18/20 08:47 Aspirin Ec 81 Mg Tablet PO 81 mg DAILY TESS Administration Budesonide 0.5 mg 06/15/20 19:00 06/18/20 07:59 Budesonide 0.5 Mg/2 Ml Neb INH 0.5 mg RTBID TESS Administration Calcium Carbonate/Glycine 500 mg 06/16/20 18:33 06/17/20 21:33 Calcium Carbonate Chew 500 Mg Tablet PO 500 mg TID PRN Administration Heartburn Formoterol Fumarate 20 mcg 06/15/20 19:00 06/18/20 07:59 Formoterol Fumarate Neb 20 Mcg/2 Ml INH 20 mcg RTBID TESS Administration Furosemide 20 mg 06/15/20 18:00 06/18/20 06:36 Furosemide 20 Mg Tablet PO 20 mg BIDDIURETIC TESS Administration Methylprednisolone Sodium Succinate 80 mg 06/15/20 22:00 06/18/20 06:36 Methylprednisolone Succinate 125 Mg/2 Ml Vial IVP 80 mg TID TESS Administration Metoprolol Tartrate 50 mg 06/15/20 21:00 06/18/20 08:47 Metoprolol Tartrate 50 Mg Tablet PO 50 mg BID TESS Administration Metoprolol Tartrate 25 mg 06/15/20 21:00 06/18/20 08:47 Metoprolol Tartrate 25 Mg Tablet PO 25 mg BID TESS Administration Nystatin 1 applic 06/15/20 21:00 06/18/20 08:50 Nystatin Powder 15 Gm TOP 1 applic BID TESS Administration Ondansetron HCl 4 mg 06/15/20 15:33 06/17/20 18:34 Ondansetron 4 Mg/2 Ml Vial IVP 4 mg Q6HR PRN Administration Nausea / Vomiting Polyethylene Glycol 17 gm 06/16/20 09:00 06/18/20 08:49 Polyethylene Glycol 3350 17 Gm Packet PO 17 gm DAILY TESS Administration Rivaroxaban 20 mg 06/15/20 18:00 06/17/20 17:06 Rivaroxaban 10 Mg Tablet PO 20 mg QDDINNER TESS Administration Simethicone 80 mg 06/17/20 03:09 06/17/20 03:27 Simethicone Chew 80 Mg Tablet PO 80 mg Q6H PRN Administration GAS Sodium Chloride 10 ml 06/15/20 17:00 06/18/20 08:50 Sodium Chloride Flush 0.9% 10 Ml Syringe IVP 10 ml 0100,0900,1700 TESS Administration Sodium Chloride 10 ml 06/15/20 15:33 06/17/20 22:15 Sodium Chloride Flush 0.9% 10 Ml Syringe IVP 10 ml PRN PRN Administration NEEDED PER PROVIDER ORDERS - Lab Result Fish Bone Diagrams: 06/18/20 04:39 06/18/20 04:39 - Additional Planning My Orders: My Active Orders 06/19/20 05:00 BMP - BASIC METABOLIC PANEL [CHEM] DAILYLAB CBC - COMP BLD CT W/AUTO DIFF [HEME] DAILYLAB 06/20/20 05:00 BMP - BASIC METABOLIC PANEL [CHEM] DAILYLAB CBC - COMP BLD CT W/AUTO DIFF [HEME] DAILYLAB Objective Vital Signs: Vital Signs - 24 hr 06/17/20 06/17/20 06/17/20 15:00 17:00 19:00 Temperature Heart Rate Heart Rate [ 87 103 H 95 Monitoring electrodes] Respiratory 14 19 11 L Rate Blood Pressure Blood Pressure 131/74 H 127/71 132/91 H [Right Radial artery] O2 Saturation 94 92 95 06/17/20 06/17/20 06/17/20 20:00 21:00 21:05 Temperature 37.0 C Heart Rate Heart Rate [ 91 84 Monitoring electrodes] Respiratory 13 13 Rate Blood Pressure 129/78 Blood Pressure 152/81 H 129/78 [Right Radial artery] O2 Saturation 95 97 06/17/20 06/17/20 06/17/20 21:06 21:17 23:00 Temperature Heart Rate 83 Heart Rate [ 72 Monitoring electrodes] Respiratory 10 L 19 Rate Blood Pressure 129/78 Blood Pressure 114/65 [Right Radial artery] O2 Saturation 92 06/18/20 06/18/20 06/18/20 00:00 01:00 02:00 Temperature Heart Rate Heart Rate [ 60 59 L 62 Monitoring electrodes] Respiratory 13 14 16 Rate Blood Pressure Blood Pressure 102/49 L 99/56 L 113/60 [Right Radial artery] O2 Saturation 93 96 97 06/18/20 06/18/20 06/18/20 03:00 04:00 05:00 Temperature 36.9 C Heart Rate Heart Rate [ 61 67 70 Monitoring electrodes] Respiratory 14 13 12 Rate Blood Pressure Blood Pressure 98/59 L 111/67 117/52 L [Right Radial artery] O2 Saturation 96 98 92 06/18/20 06/18/20 06/18/20 06:00 07:00 08:00 Temperature Heart Rate 78 Heart Rate [ 71 74 Monitoring electrodes] Respiratory 15 12 18 Rate Blood Pressure Blood Pressure 124/72 134/71 H [Right Radial artery] O2 Saturation 95 96 06/18/20 06/18/20 06/18/20 08:33 08:47 10:40 Temperature 37.6 C Heart Rate Heart Rate [ 106 H 76 Monitoring electrodes] Respiratory 17 15 Rate Blood Pressure 140/72 H Blood Pressure 140/72 H 143/94 H [Right Radial artery] O2 Saturation 91 L 92 06/18/20 12:07 Temperature 37.2 C Heart Rate Heart Rate [ 85 Monitoring electrodes] Respiratory 16 Rate Blood Pressure Blood Pressure 121/90 H [Right Radial artery] O2 Saturation 94 Oxygen O2 Source Nasal cannula Oxygen Flow Rate 4 I&O (Last 24 Hrs): Intake and Output Totals x24h 06/16/20 06/17/20 06/18/20 23:59 23:59 23:59 Intake Total 760 770 250 Output Total 1375 825 400 Balance -615 -55 -150 - Results Results: Laboratory Results WBC 13.3 x10^3/uL (4.8-10.8) H 06/18/20 04:39 RBC 4.30 10^6/uL (4.20-5.40) 06/18/20 04:39 Hgb 10.9 g/dL (12.0-16.0) L 06/18/20 04:39 Hct 37.4 % (37.0-47.0) 06/18/20 04:39 MCV 87.0 fL (81.0-99.0) 06/18/20 04:39 MCH 25.3 pg (27.0-31.0) L 06/18/20 04:39 MCHC 29.1 g/dL (32.0-36.0) L 06/18/20 04:39 RDW 15.2 % (12.0-15.0) H 06/18/20 04:39 Plt Count 431 10^3/uL (130-450) 06/18/20 04:39 MPV 9.5 fL (7.9-10.8) 06/18/20 04:39 Neut # (Auto) 12.3 10^3/uL (1.5-6.6) H 06/18/20 04:39 Lymph # (Auto) 0.7 10^3/uL (1.5-3.5) L 06/18/20 04:39 Whitman # (Auto) 0.3 10^3/uL (0.0-1.0) 06/18/20 04:39 Eos # (Auto) 0.0 10^3/uL (0.0-0.7) 06/18/20 04:39 Baso # (Auto) 0.0 10^3/uL (0.0-0.1) 06/18/20 04:39 Absolute Nucleated RBC 0.00 x10^3/uL 06/18/20 04:39 Nucleated RBC % 0.0 /100WBC 06/18/20 04:39 Bld Gas Analysis Time 0906/18/20 09:04 Sample Site RIGHT RADIAL 06/18/20 09:04 ABG pH 7.42 (7.35-7.45) 06/18/20 09:04 ABG pCO2 66 mmHg (34-45) H* 06/18/20 09:04 ABG pO2 56 mmHg (80-100) L 06/18/20 09:04 ABG HCO3 41.8 mmol/L (22.0-26.0) H 06/18/20 09:04 ABG Total CO2 43.8 MMOL/L (21.0-29.0) H* 06/18/20 09:04 ABG O2 Saturation 89 % (94-98) L 06/18/20 09:04 ABG Base Excess 14.5 mmol/L (-2.0-3.0) H 06/18/20 09:04 Jorge Test POSITIVE 06/18/20 09:04 VBG pH 7.353 (7.31-7.41) 06/15/20 14:42 VBG pCO2 87.0 mmHg (41-51) H 06/15/20 14:42 VBG pO2 27.6 mmHg (25-47) 06/15/20 14:42 VBG HCO3 47.3 mmol/L (23-28) H 06/15/20 14:42 VBG Total CO2 49.9 mmol/L (24-29) H 06/15/20 14:42 VBG O2 Saturation 53.0 % (60-80) L 06/15/20 14:42 VBG Base Excess 17.8 mmol/L (-2 - +2) H 06/15/20 14:42 O2 Delivery Device NASAL CANNULA 06/18/20 09:04 O2 Liters/Min 3.00 LPM 06/18/20 09:04 FiO2 32.00 06/16/20 07:20 EPAP 6 cmH2O 06/16/20 07:20 IPAP 12 cmH2O 06/16/20 07:20 Sodium 138 mmol/L (135-145) 06/18/20 04:39 Potassium 4.0 mmol/L (3.5-5.0) 06/18/20 04:39 Chloride 91 mmol/L (101-111) L 06/18/20 04:39 Carbon Dioxide 39 mmol/L (21-32) H* 06/18/20 04:39 Anion Gap 8.0 (6-13) 06/18/20 04:39 BUN 27 mg/dL (6-20) H 06/18/20 04:39 Creatinine 0.6 mg/dL (0.4-1.0) 06/18/20 04:39 Estimated GFR (MDRD) 102 (>89) 06/18/20 04:39 Glucose 155 mg/dL (70-100) H 06/18/20 04:39 Calcium 9.0 mg/dL (8.5-10.3) 06/18/20 04:39 Phosphorus 4.5 mg/dL (2.5-4.6) 06/18/20 04:39 Magnesium 1.8 mg/dL (1.7-2.8) 06/18/20 04:39 Total Bilirubin 0.6 mg/dL (0.2-1.0) 06/15/20 13:30 AST 15 IU/L (10-42) 06/15/20 13:30 ALT 16 IU/L (10-60) 06/15/20 13:30 Alkaline Phosphatase 66 IU/L (42-121) 06/15/20 13:30 Troponin I High Sens 6.4 ng/L (2.3-14.8) 06/15/20 13:30 B-Natriuretic Peptide 146 pg/mL (5-100) H 06/15/20 13:30 Total Protein 7.4 g/dL (6.7-8.2) 06/15/20 13:30 Albumin 3.6 g/dL (3.2-5.5) 06/15/20 13:30 Globulin 3.8 g/dL (2.1-4.2) 06/15/20 13:30 Albumin/Globulin Ratio 0.9 (1.0-2.2) L 06/15/20 13:30 Lipase 20 U/L (22-51) L 06/15/20 13:30 Nasal Adenovirus (PCR) NOT DETECTED 06/15/20 13:37 Nasal B. parapertussis DNA (PCR) NOT DETECTED 06/15/20 13:37 Nasal Coronavir 229E PCR NOT DETECTED 06/15/20 13:37 Nasal Coronavir HKU1 PCR NOT DETECTED 06/15/20 13:37 Nasal Coronavir NL63 PCR NOT DETECTED 06/15/20 13:37 Nasal Coronavir OC43 PCR NOT DETECTED 06/15/20 13:37 Nasal Enterovir/Rhinovir PCR NOT DETECTED 06/15/20 13:37 Nasal Influenza B PCR NOT DETECTED 06/15/20 13:37 Nasal Influenza A PCR NOT DETECTED 06/15/20 13:37 Nasal Parainfluen 1 PCR NOT DETECTED 06/15/20 13:37 Nasal Parainfluen 2 PCR NOT DETECTED 06/15/20 13:37 Nasal Parainfluen 3 PCR NOT DETECTED 06/15/20 13:37 Nasal Parainfluen 4 PCR NOT DETECTED 06/15/20 13:37 Nasal RSV (PCR) NOT DETECTED 06/15/20 13:37 Nasal Screen MRSA (PCR) NEGATIVE (NEGATIVE) 06/15/20 17:45 Nasal B.pertussis DNA PCR NOT DETECTED 06/15/20 13:37 Nasal C.pneumoniae (PCR) NOT DETECTED 06/15/20 13:37 Larry Human Metapneumo PCR NOT DETECTED 06/15/20 13:37 Nasal M.pneumoniae (PCR) NOT DETECTED 06/15/20 13:37 Nasal SARS-CoV-2 (PCR) NOT DETECTED 06/15/20 13:37 - Procedures Procedures: Procedures INSERTION OF ENDOTRACHEAL AIRWAY INTO TRACHEA, VIA OPENING (04/09/16) RESPIRATORY VENTILATION, GREATER THAN 96 CONSECUTIVE HOURS (04/09/16)
--- NOTE | 2020-06-18 14:22 | DISCHARGE SUMMARY ---
Discharge Summary Admit Date: 06/15/20 Discharge Date: 06/18/20 Discharging Provider: Jeannette Woodard Primary Care Provider: Tatiana Smart Code Status: Attempt Resuscitation Condition at Discharge: Stable Discharge Disposition: 01 Home, Self Care - DIAGNOSES Admission Diagnoses: COPD exacerbation Acute on chronic respiratory failure with severe and hypercapnia Atrial fibrillation Congestive heart failure Hypertension Discharge Diagnoses with Status of Each Condition: COPD exacerbation: Acute on chronic. Patient is back to baseline Acute on chronic respiratory failure with severe and hypercapnia Atrial fibrillation: Chronic Congestive heart failure: Chronic Hypertension: Chronic - HPI History of Present Illness: 60-year-old female with medical history significant for atrial fibrillation on Xarelto, CHF, hypertension, COPD on 2 to 3 L of oxygen via nasal cannula at home who presented to the ED with complaint of dyspnea for 2 days. She has been using her inhalers with no significant improvement. As a result she called EMS today. Upon arrival she was noted to be on 5 L of oxygen via nasal cannula with an oxygen saturation of 86%. In the ED she was noted to have a heart rate in the 120s. VBG showed her PCO2 of 87. As a result she was presented for admission for further treatment. At bedside she is alert and oriented x4. She denies chest pain, abdominal pain, nausea, vomiting, fever or chills. Her oxygen saturation is 91% on 4 L via nasal cannula. However with ambulation her oxygen saturation drops into the 80s. Patient was admitted to the ICU started on Solu-Medrol 80 mg IV 3 times daily, DuoNeb every 3 hours as needed. Her formoterol and budesonide were continued. She was maintained on supplemental oxygen during the day and required noninvasive ventilator at night. Patient's ABG on the day of discharge showed pH 7.43, PCO2 66, PO2 56, bicarb 41.8, total CO2 43.8, PO2 saturation 89. Patient was on 3 L of oxygen via nasal cannula with an oxygen saturation between 92 and 94%. This was her baseline oxygen requirement at home. With exertion her oxygenation drops into the 80s but readily bounces back up within a minute with rest. Patient had mild wheezing which was significantly improved from the time of admission. Patient's mentation was intact throughout her hospital stay and at time of discharge. The patient has COPD and chronic respiratory failure. Noninvasive ventilator is required to reduce hospitalization and improve the patient's health. This has been ordered and the respiratory therapist is working on getting the patient on noninvasive ventilator (Trilogy) at home. - ALLERGIES Allergies/Adverse Reactions: Allergies Allergy/AdvReac Type Severity Reaction Status Date / Time erythromycin base Allergy Severe Hives Verified 06/15/20 13:11 [Erythromycin Base] codeine [Codeine] Allergy Unknown unknown Verified 06/15/20 13:11 - MEDICATIONS Home Medications: Ambulatory Orders Medication Instructions Recorded Confirmed Ipratropium/Albuterol [Duoneb] 3 ml INH Q4H PRN 04/10/16 06/15/20 Aspirin [Aspirin EC] 81 mg PO DAILY 04/16/20 06/15/20 Furosemide [Lasix] 20 mg PO BID 04/16/20 06/15/20 Tiotropium [place] [Spiriva] 1 puffs PO DAILY 04/16/20 06/15/20 Albuterol Sulf [Ventolin Hfa 1 - 2 puffs INH Q4HR PRN #1 inhaler 04/19/20 06/15/20 Inhaler] Budesonide/Formoterol Fumarate 2 puffs PO BID PRN #1 inhaler 04/19/20 06/15/20 [Symbicort 160-4.5 Mcg Inhaler] Metoprolol Tartrate [Lopressor] 75 mg PO BID #60 tab 04/19/20 06/15/20 Rivaroxaban [Xarelto] 20 mg PO DAILY #30 tab 04/19/20 06/15/20 HYDROcod/ACETAM 5/325 [[place] 5/325] 1 tab PO Q6HR PRN 3 Days #10 tablet 06/18/20 - PHYSICAL EXAM AT DISCHARGE General Appearance: positive: Mild distress (chronic back pain) Eyes Bilateral: positive: PERRL, EOMI ENT: positive: No signs of dehydration Neck: positive: No JVD, Trachea midline Respiratory: positive: Chest non-tender, No respiratory distress, Wheezes (mild respiratory wheeze). negative: Rales, Rhonchi Cardiovascular: positive: Irregularly irregular Abdomen: positive: Non-tender, No organomegaly, Nml bowel sounds, No distention. negative: Rebound Back: positive: Nml inspection Skin: positive: Color nml, No rash, Warm, Dry Extremities: positive: Non-tender, No pedal edema Neurologic/Psychiatric: positive: Oriented x3, Mood/affect nml - LABS Result Diagrams: 06/18/20 04:39 06/18/20 04:39 - TIME SPENT Time Spent in Discharge (Minutes): 25
--- NOTE | 2020-06-18 14:26 | Discharge Plan ---
Discharge Plan Problem Reviewed?: Yes Disposition: Home, Self Care Condition: Stable Prescriptions: HYDROcod/ACETAM 5/325 [[place] 5/325] 1 tab PO Q6HR PRN 3 Days #10 tablet PRN Reason: Pain Diet: Cardiac Instruction Topics: Rivaroxaban oral tablets, Metoprolol tablets, COPD, COPD Dc, BiPap About, Atrial Fibrillation Health Concerns: You presented to the ED with complaint of dyspnea for 2 days And increased oxygen requirement. You were diagnosed with Acute on chronic respiratory failure with hypoxia and hypercapnia due to mild COPD exacerbation You were treated with Solu-Medrol, DuoNeb and your home respiratory regimen was resumed. You required BiPAP treatment at night during your hospital stay. You are back to your baseline oxygen requirement of 3 Liters via nasal cannula. Consequently you are being discharged home. You may follow-up with your primary care physician within 5 to 7 days or as needed. Plan of Treatment: You presented to the ED with complaint of dyspnea for 2 days And increased oxygen requirement. You were diagnosed with Acute on chronic respiratory failure with hypoxia and hypercapnia due to mild COPD exacerbation You were treated with Solu-Medrol, DuoNeb and your home respiratory regimen was resumed. You required BiPAP treatment at night during your hospital stay. You are back to your baseline oxygen requirement of 3 Liters via nasal cannula. Consequently you are being discharged home. You may follow-up with your primary care physician within 5 to 7 days or as needed. Care Goals: You presented to the ED with complaint of dyspnea for 2 days And increased oxygen requirement. You were diagnosed with Acute on chronic respiratory failure with hypoxia and hypercapnia due to mild COPD exacerbation You were treated with Solu-Medrol, DuoNeb and your home respiratory regimen was resumed. You required BiPAP treatment at night during your hospital stay. You are back to your baseline oxygen requirement of 3 Liters via nasal cannula. Consequently you are being discharged home. You may follow-up with your primary care physician within 5 to 7 days or as needed. Assessment: You presented to the ED with complaint of dyspnea for 2 days And increased oxygen requirement. You were diagnosed with Acute on chronic respiratory failure with hypoxia and hypercapnia due to mild COPD exacerbation You were treated with Solu-Medrol, DuoNeb and your home respiratory regimen was resumed. You required BiPAP treatment at night during your hospital stay. You are back to your baseline oxygen requirement of 3 Liters via nasal cannula. Consequently you are being discharged home. You may follow-up with your primary care physician within 5 to 7 days or as needed. No Smoking: If you smoke, Please STOP! Call for help. Follow-up with: Zen Brown MD [Primary Care Provider] -
[2020-06-18 15:52] VITALS: BP 163/93
== END 2020-06-18 15:50 | disposition home or self-care (01) | DRG 189 ==
LOC: EDUNIT# → ED 12:57 → ICU 15:34
PROVIDERS: ADMIT Internal Medicine; ATTEND Internal Medicine
DX: J96.22 Acute and chronic respiratory failure with hypercapnia (principal); J44.1 Chronic obstructive pulmonary disease with (acute) exacerbation; J96.21 Acute and chronic respiratory failure with hypoxia; I11.0 Hypertensive heart disease with heart failure; I50.9 Heart failure, unspecified; I48.91 Unspecified atrial fibrillation; Z20.822 Contact with and (suspected) exposure to COVID-19; G47.30 Sleep apnea, unspecified; F17.210 Nicotine dependence, cigarettes, uncomplicated; Z99.81 Dependence on supplemental oxygen; Z79.82 Long term (current) use of aspirin; Z79.01 Long term (current) use of anticoagulants; Z79.899 Other long term (current) drug therapy; Z87.01 Personal history of pneumonia (recurrent)
CPT/HCPCS: 36415; 36600; 71045; 80048; 80053; 82803; 83690; 83735; 83880; 84100; 84484; 85025; 87150; 87631; 93005; 94640; 94660; 96374; 99284; 99285; A9270; J7626; 0202U